=== PATIENT | female | born 1965 | race African-American/Black ===

== ENCOUNTER 2017-03-22 17:19 | Observation (INO) | payer OTHER ==
[~2017-03-22] VITALS: Ht 167.6 cm; Wt 83.6 kg
[~2017-03-22 17:19] MED LIST: PRIL40CA PO; PROP40TA27 PO
[2017-03-22 17:21] VITALS: BP 186/120; PULSE 88; RESP 14; TEMP 98.6; O2SAT 97
[2017-03-22] MEDS ORDERED: SODIUM CHLOR 0.9% 1000 ML INJ 1,000 ML IV ONE (17:39)
[2017-03-22] MEDS ORDERED: SODIUM CHLORIDE 0.9% FLUSH 10 ML FLUSH IVF PRN (17:45)
[2017-03-22 17:50] VITALS: BP_SYST 163; BP_SYST 168; BP_SYST 170; BP_DIAS 102; BP_DIAS 108; BP_DIAS 93; RESP 17; RESP 18; O2SAT 100
--- NOTE | 2017-03-22 18:05 | PD ---
HPI Chief Complaint: Syncope/Near-Syncope Time Seen by Provider: 17:39 Travel History International Travel<30 days: No Contact w/Intl Traveler<30days: No Traveled to known affect area: No History of Present Illness HPI Patient is a 51-year-old female with history of hypertension, lupus, tobacco abuse, presents to emergency room with complaints of a headache after syncopal episode 2 days ago. Patient reports that she has been having intermittent drop attacks, reports that 2 days she was outside of her house and had chest pain or shortness of breath and passed out in front of her house. Reports that when she fell, she landed on concrete, reports that she thinks that she was "out" for about a minute. Patient reports that her primary care doctor, Dr. Browne was working up her drop attacks as the last time it happened was 1.5 months ago. Patient reports that she has since lost her insurance and could not follow-up for further workup of her symptoms. Reports that Dr. Browne wanted to do a cardiac workup for her. Patient this time reports headache, denies chest pain or shortness of breath. Reports that she is currently not on any anticoagulants. PFSH Past Medical History Asthma: Yes Blood Disorders: No Anxiety: No Depression: Yes Heart Rhythm Problems: Yes (tachycardia) Cancer: Yes (THROAT) Cardiac Catheterization: No Cardiovascular Problems: Yes High Cholesterol: No Congestive Heart Failure: No Diabetes: No Diminished Hearing: No Endocrine: No GERD: Yes Genitourinary: No Headaches: Yes Hypertension: Yes Immune Disorder: No Medical other: Yes (LUPUS) Musculoskeletal: No Neurologic: No Psychiatric: No Respiratory: No Migraines: Yes Tetanus Vaccination: > 5 Years Influenza Vaccination: No ?: Not LMP: 02/26/17 Menopausal: No : 4 Para: 3 Miscarriage: 1 Ovarian Cysts: Yes Tubal Ligation: Yes Past Surgical History Abdominal Surgery: Yes (TUMORS REMOVED FROM STOMACH) AICD: No Cardiac Surgery: No Section: Yes Coronary Artery Bypass Graft: No Ear Surgery: No Endocrine Surgery: No Eye Surgery: No Genitourinary Surgery: No Gynecologic Surgery: Yes (ovary cyst) Joint Replacement: No Neurologic Surgery: Yes (BENIGN BRAIN TUMOR REMOVED) Oral Surgery: Yes (BIOPSY OF THROAT) Pacemaker: No Thoracic Surgery: No Other Surgery: Yes (UTERINE TUMOR REMOVED) Family History Family Myocardial Infarction: Yes (grandmother, sister, uncle) Social History Alcohol Use: Yes (bottle of wine a daily) Tobacco Use: Yes (1/2 PPD) 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 ) Allergies-Medications (Allergen,Severity, Reaction): Coded Allergies: MRI PRECAUTION (Verified Allergy, Severe, ALLERGY TO MRI CONTRAST MEDIUM, 03/26/16) Sulfa (Sulfonamide Antibiotics) (Verified Allergy, Severe, SWELLING, ) diatrizoate meglumine (Verified Allergy, Severe, SWELLS UP, 03/22/17) gadobenic acid (Verified Allergy, Severe, SWELLS UP, 03/22/17) gadodiamide (Verified Allergy, Severe, SWELLS UP, 03/22/17) gadoteridol (Verified Allergy, Severe, SWELLS UP, 03/22/17) iodixanol (Verified Allergy, Severe, SWELLS UP, 03/22/17) iohexol (Verified Allergy, Severe, SWELLS UP, 03/22/17) penicillin G (Verified Allergy, Severe, SWELLS UP, 03/22/17) Reported Meds & Prescriptions Reported Meds & Active Scripts Active No Active Prescriptions or Reported Medications Review of Systems General / Constitutional: No: Fever Eyes: No: Visual changes HENT: No: Headaches Cardiovascular: Positive: Chest Pain or Discomfort, Syncope Respiratory: Positive: Shortness of Breath Gastrointestinal: No: Abdominal Pain Genitourinary: No: Dysuria Musculoskeletal: No: Pain Skin: No Rash Neurologic: Positive: Headache, No: Weakness Psychiatric: No: Depression Endocrine: No: Polydipsia Hematologic/Lymphatic: No: Easy Bruising Physical Exam Narrative GENERAL: mild distress SKIN: Focused skin assessment warm/dry. HEAD: Atraumatic. Normocephalic. EYES: Pupils equal and round. No scleral icterus. No injection or drainage. ENT: No nasal bleeding or discharge. Mucous membranes pink and moist. NECK: Trachea midline. No JVD. CARDIOVASCULAR: Regular rate and rhythm. No murmur appreciated. RESPIRATORY: No accessory muscle use. Clear to auscultation. Breath sounds equal bilaterally. GASTROINTESTINAL: Abdomen soft, non-tender, nondistended. Hepatic and splenic margins not palpable. MUSCULOSKELETAL: No obvious deformities. No clubbing. No cyanosis. No edema. NEUROLOGICAL: Awake and alert. No obvious cranial nerve deficits. Motor grossly within normal limits. Normal speech. CN 2-12 grossly intact with no neurological deficits PSYCHIATRIC: Appropriate mood and affect; insight and judgment normal. Data Data Last Documented VS Vital Signs Date Time Temp Pulse Resp B/P (MAP) Pulse Ox O2 Delivery O2 Flow Rate FiO2 03/22/17 17:50 74 18 163/93 (116) 73 17 168/102 (124) 78 17 170/108 (128) 03/22/17 17:50 100 Room Air 03/22/17 17:21 98.6 Orders Orders Electrocardiogram (03/22/17 17:39) Ed Urine Pregnancytest Poc (03/22/17 17:39) Complete Blood Count With Diff (03/22/17:39) Comprehensive Metabolic Panel (03/22/17:39) Magnesium (Mg) (03/22/17:39) B-Type Natriuretic Peptide (03/22/17:39) Ckmb (Isoenzyme) Profile (03/22/17:39) Troponin I (03/22/17:39) Act Partial Throm Time (Ptt) (03/22/17:39) Prothrombin Time / Inr (Pt) (03/22/17 17:39) Urinalysis - C+S If Indicated (03/22/17:39) Chest, Single Ap (03/22/17:39) Ct Brain W/O Iv Contrast(Rout) (03/22/17 17:39) Blood Glucose (03/22/17 17:39) Ecg Monitoring (03/22/17 17:39) Iv Access Insert/Monitor (03/22/17:39) Oximetry (03/22/17 17:39) Sodium Chloride 0.9% Flush (Ns Flush) (03/22/17 17:45) Sodium Chlor 0.9% 1000 Ml Inj (Ns 1000 M (03/22/17 17:39) Orthostatic Vital Signs (03/22/17 17:39) Drug Screen, Random Urine (03/22/17 17:39) D-Dimer (03/22/17 18:01) Drug Screen, Random Urine (03/22/17 18:03) Dexamethasone Inj (Decadron Inj) (03/22/17 18:45) Ketorolac Inj (Toradol Inj) (03/22/17 18:45) Labs Laboratory Tests Test 03/22/17 17:50 03/22/17 18:00 White Blood Count 4.0 TH/MM3 Red Blood Count 4.84 MIL/MM3 Hemoglobin 14.0 GM/DL Hematocrit 42.2 % Mean Corpuscular Volume 87.1 FL Mean Corpuscular Hemoglobin 28.9 PG Mean Corpuscular Hemoglobin Concent 33.2 % Red Cell Distribution Width 15.2 % Platelet Count 228 TH/MM3 Mean Platelet Volume 8.0 FL Neutrophils (%) (Auto) 48.6 % Lymphocytes (%) (Auto) 44.0 % Monocytes (%) (Auto) 4.9 % Eosinophils (%) (Auto) 1.9 % Basophils (%) (Auto) 0.6 % Neutrophils # (Auto) 2.0 TH/MM3 Lymphocytes # (Auto) 1.8 TH/MM3 Monocytes # (Auto) 0.2 TH/MM3 Eosinophils # (Auto) 0.1 TH/MM3 Basophils # (Auto) 0.0 TH/MM3 CBC Comment DIFF FINAL Differential Comment Prothrombin Time 10.4 SEC Prothromb Time International Ratio 0.9 RATIO Activated Partial Thromboplast Time 30.1 SEC Blood Urea Nitrogen 8 MG/DL Creatinine 0.89 MG/DL Random Glucose 84 MG/DL Total Protein 7.8 GM/DL Albumin 3.4 GM/DL Calcium Level 8.5 MG/DL Magnesium Level 2.0 MG/DL Alkaline Phosphatase 78 U/L Aspartate Amino Transf (AST/SGOT) 17 U/L Alanine Aminotransferase (ALT/SGPT) 12 U/L Total Bilirubin 0.5 MG/DL Sodium Level 138 MEQ/L Potassium Level 4.1 MEQ/L Chloride Level 106 MEQ/L Carbon Dioxide Level 24.6 MEQ/L Anion Gap 7 MEQ/L Estimat Glomerular Filtration Rate 81 ML/MIN Total Creatine Kinase 94 U/L Troponin I LESS THAN 0.02 NG/ML Urine Color YELLOW Urine Turbidity HAZY Urine pH 6.5 Urine Specific [place] 1.015 Urine Protein NEG mg/dL Urine Glucose (UA) NEG mg/dL Urine Ketones NEG mg/dL Urine Occult Blood TRACE Urine Nitrite NEG Urine Bilirubin NEG Urine Urobilinogen LESS THAN 2.0 MG/DL Urine Leukocyte Esterase NEG Urine RBC 1 /hpf Urine WBC 1 /hpf Urine Squamous Epithelial Cells 4 /hpf Microscopic Urinalysis Comment CULT NOT INDICATED MDM Medical Decision Making Medical Screen Exam Complete: Yes Emergency Medical Condition: Yes Medical Record Reviewed: Yes Interpretation(s) Vital Signs Date Time Temp Pulse Resp B/P (MAP) Pulse Ox O2 Delivery O2 Flow Rate FiO2 03/22/17 17:21 98.6 88 14 186/120 (142) 97 Differential Diagnosis Differential includes intracranial hemorrhage, ACS, arrhythmia, electrolyte abnormality Narrative Course 51-year-old female who presents to emergency room with complaints of syncopal episode 2 days ago, she reports that she fell and hit her head on concrete. Patient reports that she has continued headache this time, patient reports that at the time her syncopal episode, she did have chest pain which was pleuritic in nature. Patient currently chest pain-free at this time. Patient was supposed to be worked up for syncopal episodes by her primary care doctor but currently lost her insurance. Patient was placed on a youth nutritional monitor upon arrival to the emergency room. Lab work including EKG ordered. CT of the head ordered. Patient with no cranial nerve deficits at this time, plan to observe patient. Vital Signs Date Time Temp Pulse Resp B/P (MAP) Pulse Ox O2 Delivery O2 Flow Rate FiO2 03/22/17 17:50 74 18 163/93 (116) 73 17 168/102 (124) 78 17 170/108 (128) 03/22/17 17:50 17 100 Room Air 03/22/17 17:50 76 18 100 Room Air 03/22/17 17:21 98.6 88 14 186/120 (142) 97 Laboratory Tests Test 03/22/17 17:50 03/22/17 18:00 White Blood Count 4.0 TH/MM3 (4.0-11.0) Red Blood Count 4.84 MIL/MM3 (4.00-5.30) Hemoglobin 14.0 GM/DL (11.6-15.3) Hematocrit 42.2 % (35.0-46.0) Mean Corpuscular Volume 87.1 FL (80.0-100.0) Mean Corpuscular Hemoglobin 28.9 PG (27.0-34.0) Mean Corpuscular Hemoglobin Concent 33.2 % (32.0-36.0) Red Cell Distribution Width 15.2 % (11.6-17.2) Platelet Count 228 TH/MM3 (150-450) Mean Platelet Volume 8.0 FL (7.0-11.0) Neutrophils (%) (Auto) 48.6 % (16.0-70.0) Lymphocytes (%) (Auto) 44.0 % (9.0-44.0) Monocytes (%) (Auto) 4.9 % (0.0-8.0) Eosinophils (%) (Auto) 1.9 % (0.0-4.0) Basophils (%) (Auto) 0.6 % (0.0-2.0) Neutrophils # (Auto) 2.0 TH/MM3 (1.8-7.7) Lymphocytes # (Auto) 1.8 TH/MM3 (1.0-4.8) Monocytes # (Auto) 0.2 TH/MM3 (0-0.9) Eosinophils # (Auto) 0.1 TH/MM3 (0-0.4) Basophils # (Auto) 0.0 TH/MM3 (0-0.2) CBC Comment DIFF FINAL Differential Comment Prothrombin Time 10.4 SEC (9.8-11.6) Prothromb Time International Ratio 0.9 RATIO Activated Partial Thromboplast Time 30.1 SEC (24.3-30.1) Blood Urea Nitrogen 8 MG/DL (7-18) Creatinine 0.89 MG/DL (0.50-1.00) Random Glucose 84 MG/DL (74-106) Total Protein 7.8 GM/DL (6.4-8.2) Albumin 3.4 GM/DL (3.4-5.0) Calcium Level 8.5 MG/DL (8.5-10.1) Magnesium Level 2.0 MG/DL (1.5-2.5) Alkaline Phosphatase 78 U/L (45-117) Aspartate Amino Transf (AST/SGOT) 17 U/L (15-37) Alanine Aminotransferase (ALT/SGPT) 12 U/L (10-53) Total Bilirubin 0.5 MG/DL (0.2-1.0) Sodium Level 138 MEQ/L (136-145) Potassium Level 4.1 MEQ/L (3.5-5.1) Chloride Level 106 MEQ/L (98-107) Carbon Dioxide Level 24.6 MEQ/L (21.0-32.0) Anion Gap 7 MEQ/L (5-15) Estimat Glomerular Filtration Rate 81 ML/MIN (>89) Total Creatine Kinase 94 U/L (26-192) Troponin I LESS THAN 0.02 NG/ML Urine Color YELLOW (YELLW/STRAW) Urine Turbidity HAZY (CLEAR) Urine pH 6.5 (5.0-8.5) Urine Specific [place] 1.015 (1.002-1.035) Urine Protein NEG mg/dL (NEG-TRACE) Urine Glucose (UA) NEG mg/dL (NEG) Urine Ketones NEG mg/dL (NEG) Urine Occult Blood TRACE (NEG) Urine Nitrite NEG (NEG) Urine Bilirubin NEG (NEG) Urine Urobilinogen LESS THAN 2.0 MG/DL (LESS Urine Leukocyte Esterase NEG (NEG) Urine RBC 1 /hpf (0-3) Urine WBC 1 /hpf (0-5) Urine Squamous Epithelial Cells 4 /hpf (0-5) Microscopic Urinalysis Comment CULT NOT INDICATED Ct of head: menigioma with no acute intracranial process Plan to obs patient for syncope and cardiac observation Diagnosis Primary Impression: Syncope and collapse Admitting Information Admitting Physician Requests: Observation Scripts No Active Prescriptions or Reported Meds Camelia Reyez DO Mar 22, 2017 18:05
[2017-03-22 18:11] LABS: BASOPHIL % 0.6 % (0.0-2.0); EOSINOPHIL # 0.1 TH/MM3 (0-0.4); EOSINOPHIL % 1.9 % (0.0-4.0); HEMATOCRIT 42.2 % (35.0-46.0); HEMO FLAGS DIFF FINAL; LYMPHOCYTE # 1.8 TH/MM3 (1.0-4.8); MEAN CELL VOLUME 87.1 FL (80.0-100.0); MEAN CORPUSCULAR HEMOGLOBIN 28.9 PG (27.0-34.0); MEAN CORPUSCULAR HGB CONC 33.2 % (32.0-36.0); MONO % 4.9 % (0.0-8.0); NEUT % 48.6 % (16.0-70.0); PLATELET COUNT 228 TH/MM3 (150-450); RED BLOOD COUNT 4.84 MIL/MM3 (4.00-5.30); RED CELL DISTRIBUTION WIDTH 15.2 % (11.6-17.2)
[2017-03-22 18:30] LABS: APTT (PATIENT) 30.1 SEC (24.3-30.1); INTERNATIONAL NORMALIZED RATIO 0.9 RATIO; PROTHROMBIN TIME - PATIENT 10.4 SEC (9.8-11.6)
--- NOTE | 2017-03-22 18:30 | RADRPT ---
EXAM DATE/TIME: 03/22/2017 18:16 [facility] COMPARISON: CT BRAIN W/O CONTRAST, November 03, 2015, 3:42. INDICATIONS : Syncopal episode. RADIATION DOSE: 38.35 CTDIvol (mGy) MEDICAL HISTORY : Cardiovascular disease. Hypertension. Carcinoma, esophageal. SURGICAL HISTORY : Tubal ligation. ENCOUNTER: Initial ACUITY: 1 day PAIN SCALE: 0/10 LOCATION: cranial TECHNIQUE: Multiple contiguous axial images were obtained of the head. Using automated exposure control and adj ustment of the mA and/or kV according to patient size, radiation dose was kept as low as reasonably a chievable to obtain optimal diagnostic quality images. DICOM format image data is available electro nically for review and comparison. FINDINGS: There is no evidence of acute cortical infarction, acute hemorrhage, mass effect or midline shift. Th e calcified 2.6 a 1.3 cm extra-axial mass adjacent to the transverse sinus is again identified charac teristic of meningioma. There has been no significant change when compared to the prior exam. Posteri or fossa structures are unremarkable. There is previous left temporal craniotomy CONCLUSION: No evidence of acute intracranial pathology. Stable meningioma Leo Couch MD on March 22, 2017 at 18:27 Board Certified Radiologist. This report was verified electronically.
[2017-03-22 18:31] LABS: BLOOD, URINE TRACE (NEG); COMMENT (UR) CULT NOT INDICATED; CULTURE IF INDICATED CULT NOT INDICATED; GLUCOSE,URINE NEG (NEG); KETONE, URINE NEG (NEG); NITRITE,URINE NEG (NEG); PH, URINE 6.5 (5.0-8.5); SQUAMOUS EPITHELIAL CELL URINE 4 /hpf (0-5); URINE COLOR YELLOW (YELLW/STRAW)
--- NOTE | 2017-03-22 18:35 | RADRPT ---
EXAM DATE/TIME: 03/22/2017 18:04 [facility] COMPARISON: CHEST SINGLE AP, August 17, 2015, 20:44. INDICATIONS : Palpitations. MEDICAL HISTORY : Hypertension. Lupus. SURGICAL HISTORY : None. ENCOUNTER: Initial ACUITY: 1 day PAIN SCORE: 0/10 LOCATION: Bilateral chest FINDINGS: A single view of the chest demonstrates the lungs to be symmetrically aerated without evidence of mas s, infiltrate or effusion. The cardiomediastinal contours are unremarkable. Osseous structures are intact. CONCLUSION: 1. No acute cardiopulmonary disease. Leo Couch MD on March 22, 2017 at 18:33 Board Certified Radiologist. This report was verified electronically.
[2017-03-22 18:42] LABS: ALKALINE PHOSPHATASE 78 U/L (45-117); ALT (GPT) 12 U/L (10-53); ANION GAP 7 MEQ/L (5-15); AST (GOT) 17 U/L (15-37); BICARBONATE 24.6 MEQ/L (21.0-32.0); BLOOD UREA NITROGEN 8 MG/DL (7-18); CHLORIDE 106 MEQ/L (98-107); GLOMERULAR FILTRATION RATE 81 ML/MIN (>89); POTASSIUM 4.1 MEQ/L (3.5-5.1); SODIUM (NA) 138 MEQ/L (136-145); TOTAL BILIRUBIN ADULT 0.5 MG/DL (0.2-1.0)
[2017-03-22 18:45] VITALS: BP 190/73; PULSE 68; RESP 18; O2SAT 98
[2017-03-22] MEDS ORDERED: DEXAMETHASONE SOD PHOS 20 MG/5 ML VIAL IV PUSH ONE (18:45)
[2017-03-22] MEDS ORDERED: KETOROLAC TROMETHAMINE 30 MG/ML (IVP) VIAL IV PUSH ONE (18:45)
[2017-03-22 18:47] LABS: CREATINE KINASE 94 U/L (26-192)
[2017-03-22] MEDS ORDERED: ASPIRIN 81 MG CHEW TAB CHEW ONE (19:00)
[2017-03-22] MEDS ORDERED: NALOXONE HCL 0.4 MG/ML AMP IV PUSH PRN (19:15)
[2017-03-22] MEDS ORDERED: SODIUM CHLORIDE 0.9% FLUSH 10 ML FLUSH IV FLUSH PRN (19:15)
--- NOTE | 2017-03-22 20:29 | RADRPT ---
EXAM DATE/TIME: 03/22/2017 19:50 [facility] COMPARISON: No previous studies available for comparison. INDICATIONS : Syncope. MEDICAL HISTORY : Hypertension. Gastroesophageal reflux disease. Asthma. ETOH abuse. Substance abuse. Ovarian cyst. L upus. SURGICAL HISTORY : Benign brain tumor removed. Uterine tumor removed. ENCOUNTER: Initial ACUITY: 3 days PAIN SCORE: 0/10 LOCATION: Bilateral neck PEAK SYSTOLIC VELOCITIES (cm/sec): ICA/CCA RATIO: Right: 2.4 Left: 2.2 ICA: Right: 107 Left: 109 CCA: Right: 44 Left: 50 ECA: Right: 44 Left: 94 VERTEBRAL: Right: 56 antegrade Left: 59 antegrade Elevated flow velocities and ICA/CCA ratios have been found to correlate with increased degrees of vessel stenosis, calculated as percentage of diameter relative to a normal segment of distal ICA/CCA FINDINGS: RIGHT CAROTID: No significant stenosis is visualized. The waveforms are within normal limits. LEFT CAROTID: No significant stenosis is visualized. The waveforms are within normal limits. VERTEBRAL ARTERIES: Antegrade flow is seen in both vertebral arteries. MISCELLANEOUS: None. CONCLUSION: 1. Elevated velocities bilaterally corresponding to 50-70 % stenosis without significant plaque forma tion. CT angiography of the cervicobrachial arch and carotid arteries is recommended for further eval uation if clinically indicated. Leo Couch MD on March 22, 2017 at 20:27 Board Certified Radiologist. This report was verified electronically.
[2017-03-22] MEDS ORDERED: cloNIDine HCL 0.1 MG TAB PO ONE (21:15)
[2017-03-22 21:16] VITALS: BP 165/110; PULSE 73; RESP 16; TEMP 98.1; O2SAT 100
[2017-03-22] MEDS ORDERED: TOPI1TAB36 PO (21:18)
[2017-03-22] MEDS ORDERED: PROP40TA3 PO (21:18)
[2017-03-22] MEDS ORDERED: LISI-515 PO (21:23)
[2017-03-22] MEDS ORDERED: HYDR25TA5 PO (21:27)
--- NOTE | 2017-03-22 21:46 | HHI.HP ---
[facility] Service [facility] ([place], [place])ists Primary Care Physician No Primary Care Physician Admission Diagnosis Syncope Diagnoses: Chief Complaint: Headache, syncope Travel History International Travel<30 Days: No Contact w/Intl Traveler <30 Da: No Traveled to Known Affected Are: No History of Present Illness 51-year-old female with a history of hypertension, lupus, tobacco abuse, throat cancer, benign brain tumor, asthma, depression and GERD presented to the ED with complaints of a headache and having a syncopal episode 2 days ago. Patient states 2 days ago she was walking outside and passed out and hit the right side of her head on the sidewalk she states she will only lost consciousness for a brief moment. She denies any associated chest pain or shortness of breath but does complain of the headache that started after the fall. She states she randomly passed out a month and a half ago and was seen by her primary care physician Dr. Cardenas and was going to have a workup completed but lost her insurance and she is been unable to follow up with him. His loss of insurance she has been unable to take any medications for her high blood pressure and lupus. The patient says that she has felt dizzy prior to her syncopal episodes and sometimes sees spots. She also feels like her hands are shaking when she passes out. She says her episodes tend to occur in the evening time. She mentions she gets flare-ups of Lupus from time to time, but she feels well at this time. She does complain of a headache from hitting her head a couple of days ago. Review of Systems Except as stated in HPI: all other systems reviewed are Neg Past Family Social History Past Medical History Hypertension Lupus Tobacco, alcohol and illicit drug abuse Throat cancer Benign brain tumor in Asthma Depression GERD Past Surgical History Tubal ligation Throat cancer removed with radiation Ovarian cyst removal Reported Medications Reported Meds & Active Scripts Active No Active Prescriptions or Reported Medications Allergies: Coded Allergies: MRI PRECAUTION (Verified Allergy, Severe, ALLERGY TO MRI CONTRAST MEDIUM, 03/26/16) Sulfa (Sulfonamide Antibiotics) (Verified Allergy, Severe, SWELLING, ) diatrizoate meglumine (Verified Allergy, Severe, SWELLS UP, 03/22/17) gadobenic acid (Verified Allergy, Severe, SWELLS UP, 03/22/17) gadodiamide (Verified Allergy, Severe, SWELLS UP, 03/22/17) gadoteridol (Verified Allergy, Severe, SWELLS UP, 03/22/17) iodixanol (Verified Allergy, Severe, SWELLS UP, 03/22/17) iohexol (Verified Allergy, Severe, SWELLS UP, 03/22/17) penicillin G (Verified Allergy, Severe, SWELLS UP, 03/22/17) Active Ordered Medications Current Medications Medications (Trade) Dose Ordered Sig/Betty Route Start Time Stop Time Status Last Admin (NS Flush) 2 ml UNSCH PRN IV FLUSH 03/22/17 19:15 (NS Flush) 2 ml BID IV FLUSH 03/22/17 21:00 (Narcan Inj) 0.4 mg UNSCH PRN IV PUSH 03/22/17 19:15 (Catapres) 0.1 mg ONCE ONCE PO 03/22/17 21:15 03/22/17 21:16 UNV Family History Dad: Heart disease, CVA Social History Tobacco use: 10 cigarettes a day Alcohol use: A bottle wine a day Illicit drug use: Marijuana and cocaine Physical Exam Vital Signs Vital Signs Date Time Temp Pulse Resp B/P (MAP) Pulse Ox O2 Delivery O2 Flow Rate FiO2 03/22/17 18:45 68 18 190/73 (112) 98 Room Air 03/22/17 17:50 74 18 163/93 (116) 73 17 168/102 (124) 78 17 170/108 (128) 03/22/17 17:50 17 100 Room Air 03/22/17 17:50 76 18 100 Room Air 03/22/17 17:21 98.6 88 14 186/120 (142) 97 Physical Exam GENERAL: This is a well-nourished, well-developed patient, in no apparent distress. SKIN: No rashes, ecchymoses or lesions. Cool and dry. HEAD: Atraumatic. Normocephalic. EYES: Pupils equal round and reactive. ENT: Nose without bleeding, purulent drainage or septal hematoma. Airway patent. NECK: Trachea midline. No JVD or lymphadenopathy CARDIOVASCULAR: Regular rate and rhythm without murmurs, gallops, or rubs. RESPIRATORY: Clear to auscultation. Breath sounds equal bilaterally. No wheezes , rales, or rhonchi. GASTROINTESTINAL: Abdomen soft, non-tender, nondistended. MUSCULOSKELETAL: Extremities without clubbing, cyanosis, or edema. Negative Homans sign bilaterally. NEUROLOGICAL: Awake and alert. Complains of headache. No cranial deficits. Motor and sensory grossly within normal limits. Normal speech. Laboratory Laboratory Tests Test 03/22/17 17:50 03/22/17 18:00 White Blood Count 4.0 Red Blood Count 4.84 Hemoglobin 14.0 Hematocrit 42.2 Mean Corpuscular Volume 87.1 Mean Corpuscular Hemoglobin 28.9 Mean Corpuscular Hemoglobin Concent 33.2 Red Cell Distribution Width 15.2 Platelet Count 228 Mean Platelet Volume 8.0 Neutrophils (%) (Auto) 48.6 Lymphocytes (%) (Auto) 44.0 Monocytes (%) (Auto) 4.9 Eosinophils (%) (Auto) 1.9 Basophils (%) (Auto) 0.6 Neutrophils # (Auto) 2.0 Lymphocytes # (Auto) 1.8 Monocytes # (Auto) 0.2 Eosinophils # (Auto) 0.1 Basophils # (Auto) 0.0 CBC Comment DIFF FINAL Differential Comment Prothrombin Time 10.4 Prothromb Time International Ratio 0.9 Activated Partial Thromboplast Time 30.1 Blood Urea Nitrogen 8 Creatinine 0.89 Random Glucose 84 Total Protein 7.8 Albumin 3.4 Calcium Level 8.5 Magnesium Level 2.0 Alkaline Phosphatase 78 Aspartate Amino Transf (AST/SGOT) 17 Alanine Aminotransferase (ALT/SGPT) 12 Total Bilirubin 0.5 Sodium Level 138 Potassium Level 4.1 Chloride Level 106 Carbon Dioxide Level 24.6 Anion Gap 7 Estimat Glomerular Filtration Rate 81 Total Creatine Kinase 94 Troponin I LESS THAN 0.02 B-Type Natriuretic Peptide 22 Urine Color YELLOW Urine Turbidity HAZY Urine pH 6.5 Urine Specific [place] 1.015 Urine Protein NEG Urine Glucose (UA) NEG Urine Ketones NEG Urine Occult Blood TRACE Urine Nitrite NEG Urine Bilirubin NEG Urine Urobilinogen LESS THAN 2.0 Urine Leukocyte Esterase NEG Urine RBC 1 Urine WBC 1 Urine Squamous Epithelial Cells 4 Microscopic Urinalysis Comment CULT NOT INDICATED Urine Opiates Screen NEG Urine Barbiturates Screen NEG Urine Amphetamines Screen NEG Urine Benzodiazepines Screen NEG Urine Cocaine Screen POS Urine Cannabinoids Screen POS Result Diagram: 03/22/17174903/22/171749 Caprini VTE Risk Assessment Caprini VTE Risk Assessment: Mod/High Risk (score >= 2) Caprini Risk Assessment Model Point Value = 1 Point Value = 2 Point Value = 3 Point Value = 5 Age 41-60 Minor surgery BMI > 25 kg/m2 Swollen legs Varicose veins or History of unexplained or recurrent spontaneous Oral contraceptives or hormone replacement Sepsis (< 1 month) Serious lung disease, including pneumonia (< 1 month) Abnormal pulmonary function Acute myocardial infarction Congestive heart failure (< 1 month) History of inflammatory bowel disease Medical patient at bed rest Age 61-74 Arthroscopic surgery Major open surgery (> 45 min) Laparoscopic surgery (> 45 min) Malignancy Confined to bed (> 72 hours) Immobilizing plaster cast Central venous access Age >= 75 History of VTE Family history of VTE Factor V Leiden Prothrombin [id number] Lupus anticoagulant Anticardiolipin antibodies Elevated serum homocysteine Heparin-induced thrombocytopenia Other congenital or acquired thrombophilia Stroke (< 1 month) Elective arthroplasty Hip, pelvis, or leg fracture Acute spinal cord injury (< 1 month) Prophylaxis Regimen Total Risk Factor Score Risk Level Prophylaxis Regimen 0-1 Low Early ambulation 2 Moderate Order ONE of the following: *Sequential Compression Device (SCD) *Heparin 5000 units SQ BID 3-4 Higher Order ONE of the following medications: *Heparin 5000 units SQ TID *Enoxaparin/Lovenox 40 mg SQ daily (WT < 150 kg, CrCl > 30 mL/min) *Enoxaparin/Lovenox 30 mg SQ daily (WT < 150 kg, CrCl > 10-29 mL/min) *Enoxaparin/Lovenox 30 mg SQ BID (WT < 150 kg, CrCl > 30 mL/min) AND/OR *Sequential Compression Device (SCD) 5 or more Highest Order ONE of the following medications: *Heparin 5000 units SQ TID (Preferred with Epidurals) *Enoxaparin/Lovenox 40 mg SQ daily (WT < 150 kg, CrCl > 30 mL/min) *Enoxaparin/Lovenox 30 mg SQ daily (WT < 150 kg, CrCl > 10-29 mL/min) *Enoxaparin/Lovenox 30 mg SQ BID (WT < 150 kg, CrCl > 30 mL/min) AND *Sequential Compression Device (SCD) Assessment and Plan Problem List: (1) Syncope and collapse ICD Code: R55 - Syncope and collapse Status: Acute (2) Tobacco abuse ICD Code: Z72.0 - Tobacco use (3) ETOH abuse ICD Code: F10.10 - Alcohol abuse, uncomplicated (4) HTN (hypertension) ICD Code: I10 - Essential (primary) hypertension Assessment and Plan 51-year-old female with a history of hypertension, lupus, tobacco abuse, throat cancer, benign brain tumor, asthma, depression and GERD presented to the ED with complaints of a headache and having a syncopal episode 2 days ago Syncope Head CT reviewed and unremarkable Carotid ultrasound reviewed and shows elevated velocities bilaterally corresponding to 50-70% stenosis without significant plaque formation EKG reviewed and showed sinus rhythm -2-D echo ordered -Consult neurology for recommendations -Serial troponin and EKGs ordered -Neuro checks -Orthostatic blood pressures -MRI brain w/o contrast ordered, patient is allergic to contrast -Lipid profile ordered Stable meningioma noted on CT. She does describe tremors in her hands when she passes out. Concern for seizure. Will order EEG. Follow MRI. Neurology consult requested. Hypertension, chronic, uncontrolled -Resumed home medications lisinopril and HCTZ -Hold propranolol due to positive cocaine use -Monitor vitals -Clonidine when necessary Blood pressure currently well-controlled. Orthostatics negative. Continue current regimen. Cough, non productive, no fevers or leukocytosis, patient states normal cough likely due to smoking D dimer 2.65 -VQ scan ordered to rule out P/e -Duonebs ordered In light of elevated d-dimer will pursue VQ scan. Tobacco, alcohol and illicit drug use Drug screen positive for cocaine and marijuana -Encouraged to quit -CIWA protocol ordered -Seizure and withdrawal precautions Cessation instructions. CIWA. DVT prophylaxis: SCDs Discussed Condition With Patient The exam, history, and the medical decision-making described in the above note were completed with the assistance of the mid-level provider. I reviewed and agree with the findings presented. I attest that I had a [id number] encounter with the patient on the same day, and personally performed and documented my assessment and findings in the medical record. Rachele Segura Mar 22, 2017 21:46 Miguel Fenton DO Mar 23, 2017 09:08
[2017-03-22 22:01] VITALS: PULSE 69
[2017-03-22 23:35] VITALS: BP 167/94; PULSE 93; RESP 18; TEMP 98; O2SAT 99
[2017-03-22] MEDS: SODIUM CHLORIDE 0.9% FLUSH 10 ML FLUSH IV FLUSH SCH (23:51)
[2017-03-22] MEDS: HYDROCHLOROTHIAZIDE 25 MG TAB PO SCH (23:52)
[2017-03-22] MEDS: LISINOPRIL 20 MG TAB PO SCH (23:52)
[2017-03-22] MEDS: TOPIRAMATE 25 MG TAB PO SCH (23:53)
[2017-03-23] VITALS (16 sets, daily range): BP systolic 112–179; BP diastolic 76–105; PULSE 64–93; RESP 16–18; TEMP 97.8–98.6; O2SAT 96–100
[2017-03-23 02:14] LABS: CREATINE KINASE 74 U/L (26-192)
[2017-03-23] MEDS ORDERED: KETOROLAC TROMETHAMINE 30 MG/ML (IVP) VIAL IV PUSH ONE (04:30)
[2017-03-23] MEDS: RESP: ALBUTEROL 2.5 MG/IPRATROPIUM 0.5 MG NEB (SCH) NEB ×4 (04:47→20:57)
--- NOTE | 2017-03-23 09:49 | EKG ---
Date Performed: 03/22/2017 Time Performed: 18:26:48 PTAGE: 51 years EKG: Sinus rhythm NONSPECIFIC T-WAVE ABNORMALITY BORDERLINE ECG PREVIOUS TRACING : 03/27/2016 04.01 Compared to the prior study, minor nonspecific T-wave rondon es are now present. DOCTOR: Leo Terry Interpretating Date/Time 03/23/2017 09:48:08
--- NOTE | 2017-03-23 09:50 | HHI.PR ---
Subjective Remarks Resting comfortably. Drinks a bottle of wine a day. Still uses cocaine. Working on quitting. Objective Vitals Vital Signs Date Time Temp Pulse Resp B/P (MAP) Pulse Ox O2 Delivery O2 Flow Rate FiO2 03/23/17 06:59 97.8 64 16 134/90 (105) 99 142/99 (113) 143/94 (110) 03/23/17 04:36 98 03/23/17 04:14 70 03/23/17 04:04 69 03/23/17 03:48 98.4 82 18 143/88 (106) 98 03/23/17 00:03 76 03/22/17 23:35 98.0 93 18 167/94 (118) 99 03/22/17 22:01 69 03/22/17 21:16 98.1 73 16 165/110 (128) 100 03/22/17 18:45 68 18 190/73 (112) 98 Room Air 03/22/17 17:50 74 18 163/93 (116) 73 17 168/102 (124) 78 17 170/108 (128) 03/22/17 17:50 17 100 Room Air 03/22/17 17:50 76 18 100 Room Air 03/22/17 17:21 98.6 88 14 186/120 (142) 97 I/O 03/22/17 03/22/17 03/22/17 03/23/17 03/23/17 03/23/17 07:00 15:00 23:00 07:00 15:00 23:00 Intake Total 1000 ml 700 ml Balance 1000 ml 700 ml Intake Oral 700 ml IV Total 1000 ml # Voids 5 2 Result Diagram: 03/22/17174903/22/171749 Imaging Last Impressions Head CT 03/22/171738 Signed Impressions: Service Date/Time: Wednesday, March 22, 2017 18:16 - CONCLUSION: No evidence of acute intracranial pathology. Stable meningioma Leo Couch MD Chest X-Ray 03/22/171738 Signed Impressions: Service Date/Time: Wednesday, March 22, 2017 18:04 - CONCLUSION: 1. No acute cardiopulmonary disease. Leo Couch MD Carotid Artery Ultrasound 03/22/17 0000 Signed Impressions: Service Date/Time: Wednesday, March 22, 2017 19:50 - CONCLUSION: 1. Elevated velocities bilaterally corresponding to 50-70 %% stenosis without significant plaque formation. CT angiography of the cervicobrachial arch and carotid arteries is recommended for further evaluation if clinically indicated. Leo Couch MD Objective Remarks GENERAL: This is a well-nourished, well-developed patient, in no apparent distress. SKIN: No rashes, ecchymoses or lesions. Cool and dry. HEAD: Atraumatic. Normocephalic. EYES: Pupils equal round and reactive. ENT: Nose without bleeding, purulent drainage or septal hematoma. Airway patent. NECK: Trachea midline. No JVD or lymphadenopathy CARDIOVASCULAR: Regular rate and rhythm without murmurs, gallops, or rubs. RESPIRATORY: Clear to auscultation. Breath sounds equal bilaterally. No wheezes , rales, or rhonchi. GASTROINTESTINAL: Abdomen soft, non-tender, nondistended. MUSCULOSKELETAL: Extremities without clubbing, cyanosis, or edema. Negative Homans sign bilaterally. NEUROLOGICAL: Awake and alert. Complains of headache. No cranial deficits. Motor and sensory grossly within normal limits. Normal speech. Medications and IVs Current Medications Medications (Trade) Dose Ordered Sig/Betty Route Start Time Stop Time Status Last Admin (NS Flush) 2 ml UNSCH PRN IV FLUSH 03/22/17 19:15 (NS Flush) 2 ml BID IV FLUSH 03/22/17 21:00 03/22/17 23:51 (Narcan Inj) 0.4 mg UNSCH PRN IV PUSH 03/22/17 19:15 (Folate) 1 mg DAILY PO 03/23/17 09:00 03/28/17 08:59 (Vitamin B1) 100 mg DAILY PO 03/23/17 09:00 (Theragran M Tab) 1 tab DAILY PO 03/23/17 09:00 03/28/17 08:59 (Hydrodiuril) 25 mg BID PO 03/22/17 21:45 03/22/17 23:52 (Prinivil) 20 mg BID PO 03/22/17 21:45 03/22/17 23:52 (Topamax) 50 mg BID PO 03/22/17 21:45 03/22/17 23:53 (Duoneb Neb) 1 ampule Q6HR NEB NEB 03/23/17 04:30 03/23/17 04:47 A/P Problem List: (1) Syncope and collapse ICD Code: R55 - Syncope and collapse Status: Acute (2) Tobacco abuse ICD Code: Z72.0 - Tobacco use (3) ETOH abuse ICD Code: F10.10 - Alcohol abuse, uncomplicated (4) HTN (hypertension) ICD Code: I10 - Essential (primary) hypertension Assessment and Plan 51-year-old female with a history of hypertension, lupus, tobacco abuse, throat cancer, benign brain tumor, asthma, depression and GERD presented to the ED with complaints of a headache and having a syncopal episode 2 days ago Syncope Head CT reviewed and unremarkable Carotid ultrasound reviewed and shows elevated velocities bilaterally corresponding to 50-70% stenosis without significant plaque formation EKG reviewed and showed sinus rhythm -2-D echo ordered -Consult neurology for recommendations -Serial troponin and EKGs ordered -Neuro checks -Orthostatic blood pressures -MRI brain w/o contrast ordered, patient is allergic to contrast -Lipid profile ordered Stable meningioma noted on CT. She does describe tremors in her hands when she passes out. Concern for seizure. Will order EEG. Follow MRI. Neurology consult requested. Hypertension, chronic, uncontrolled -Resumed home medications lisinopril and HCTZ -Hold propranolol due to positive cocaine use -Monitor vitals -Clonidine when necessary Blood pressure currently well-controlled. Orthostatics negative. Continue current regimen. Cough, non productive, no fevers or leukocytosis, patient states normal cough likely due to smoking D dimer 2.65 -VQ scan ordered to rule out P/e -Duonebs ordered In light of elevated d-dimer will pursue VQ scan. Tobacco, alcohol and illicit drug use Drug screen positive for cocaine and marijuana -Encouraged to quit -CIWA protocol ordered -Seizure and withdrawal precautions Cessation instructions. CIWA. DVT prophylaxis: SCDs Discharge Planning Awaiting further work-up. Anticipate d/c home in Miguel Jaimes DO Mar 23, 2017 09:50
[2017-03-23 09:51] LABS: AUTOMATED NEUTROPHIL # 6.7 TH/MM3 (1.8-7.7); BASOPHIL % 0.1 % (0.0-2.0); HEMATOCRIT 40.4 % (35.0-46.0); HEMO FLAGS DIFF FINAL; LYMPH % 9.5 % (9.0-44.0); LYMPHOCYTE # 0.7 TH/MM3 (1.0-4.8); MEAN CORPUSCULAR HEMOGLOBIN 28.8 PG (27.0-34.0); MEAN CORPUSCULAR HGB CONC 33.1 % (32.0-36.0); MONO % 2.8 % (0.0-8.0); NEUT % 87.6 % (16.0-70.0); PLATELET COUNT 214 TH/MM3 (150-450); RED BLOOD COUNT 4.64 MIL/MM3 (4.00-5.30); RED CELL DISTRIBUTION WIDTH 14.8 % (11.6-17.2); WHITE BLOOD COUNT 7.7 TH/MM3 (4.0-11.0)
--- NOTE | 2017-03-23 10:11 | EKG ---
Date Performed: 03/23/2017 Time Performed: 03:46:34 PTAGE: 51 years EKG: Sinus rhythm NONSPECIFIC T-WAVE ABNORMALITY BORDERLINE ECG PREVIOUS TRACING : 03/22/2017 18.26 Compared to prior tracing no significant change DOCTOR: Leo Terry Interpretating Date/Time 03/23/2017 10:08:33
[2017-03-23 10:17] LABS: ANION GAP 10 MEQ/L (5-15); BICARBONATE 22.1 MEQ/L (21.0-32.0); BLOOD UREA NITROGEN 7 MG/DL (7-18); CHLORIDE 104 MEQ/L (98-107); GLOMERULAR FILTRATION RATE 83 ML/MIN (>89); POTASSIUM 3.6 MEQ/L (3.5-5.1); SODIUM (NA) 136 MEQ/L (136-145)
[2017-03-23 10:23] LABS: HDL CHOLESTEROL 62.2 MG/DL (40.0-60.0); LDL CHOLESTEROL 75 MG/DL (0-99)
[2017-03-23 10:28] LABS: CREATINE KINASE 67 U/L (26-192)
[2017-03-23] MEDS ORDERED: APIXABAN 5 MG TABLET PO ONE (10:30)
--- NOTE | 2017-03-23 11:45 | RADRPT ---
EXAM DATE/TIME: 03/23/2017 10:51 [facility] COMPARISON: No previous studies available for comparison. INDICATIONS : Mass. MEDICAL HISTORY : Hypertension. Throat cancer SURGICAL HISTORY : thyroid and throat cancer removed, brain mass removed ENCOUNTER: Subsequent ACUITY: 3 day PAIN SCORE: 0/10 LOCATION: cranial TECHNIQUE: Multiplanar, multisequence MRI of the brain was performed without contrast. FINDINGS: MRI of the brain is performed in sagittal, axial and coronal planes. The craniocervical junction and midline structures are unremarkable. Diffusion weighted images demonstrate no abnormality. There is n o evidence of acute cortical infarction, acute hemorrhage, mass effect or midline shift is seen. Post erior fossa structures are unremarkable. There is previous left parietal craniotomy. There is a 2.4 x 1.4 extra-axial mass with signal characteristics of meningioma in the region of the left transverse sinus but contrast was not administered. The status of the transverse sinus cannot be determined. CONCLUSION: 1. 2.4 x 1.4 symmetr extra-axial mass in the region of the left transverse sinus characteristic of me ningioma. 2. Contrast was not administered which limits evaluation Leo Couch MD on March 23, 2017 at 11:40 Board Certified Radiologist. This report was verified electronically.
[2017-03-23] MEDS: LISINOPRIL 20 MG TAB PO SCH ×2 (12:10→22:34)
[2017-03-23] MEDS: MULTIVITAMINS/MINERALS THERAPEUTIC TAB PO SCH (12:10)
[2017-03-23] MEDS: HYDROCHLOROTHIAZIDE 25 MG TAB PO SCH ×2 (12:10→22:35)
[2017-03-23] MEDS: THIAMINE HCL 100 MG TAB PO SCH (12:10)
[2017-03-23] MEDS: FOLIC ACID 1 MG TAB PO SCH (12:11)
[2017-03-23] MEDS: SODIUM CHLORIDE 0.9% FLUSH 10 ML FLUSH IV FLUSH SCH ×2 (12:11→22:36)
[2017-03-23] MEDS: TOPIRAMATE 25 MG TAB PO SCH ×2 (12:11→22:34)
--- NOTE | 2017-03-23 13:40 | RADRPT ---
EXAM DATE/TIME: 03/23/2017 09:32 [facility] COMPARISON: LUNG VENTILATION & PERFUSION SCAN, March 12, 2012, 23:35. INDICATIONS : Syncopal episode. Chest pain with dyspnea. DOSE: 8.6 mCi Tc99m MAA IV 1.5 mCi Tc99m DTPA aerosol MEDICAL HISTORY : Hypertension. Lupus. Gastroesophageal reflux disease. Smoker. Asthma. SURGICAL HISTORY : Tubal ligation. ENCOUNTER: Initial ACUITY: 2 days PAIN SCALE: 0/10 LOCATION: chest TECHNIQUE: Following five minutes of tidal breathing of DTPA aerosol, planar images of the lungs were performed in eight projections. The patient was then injected with MAA, and eight-view perfusion scan was perf ormed. FINDINGS: There is a homogeneous pattern of aerosol delivery to the periphery of both lungs. No focal ventilat ory defects are seen. The perfusion lung scan demonstrates a homogenous pattern of uptake in both lungs. No segmental or s ubsegmental defects are seen. CONCLUSION: 1. Low probability pulmonary embolism Leo Couch MD on March 23, 2017 at 10:41 Board Certified Radiologist. This report was verified electronically.
--- NOTE | 2017-03-23 16:11 | MB ---
cc: HILARY BENNETT M.D. DATE OF CONSULTATION 03/23/17 DATE OF 1965 AGE 51 REASON FOR CONSULTATION Syncope. HISTORY OF PRESENT ILLNESS A 51-year-old woman with history of hypertension, lupus, tobacco abuse, throat cancer, meningioma, history of surgery 11 years ago, asthma, depression, reflux, came in due to syncopes. She states she has had a syncope off and on for quite a few years, ___ more than five, maybe since she had the meningioma removed. They can occur with her feeling lightheaded and they can occur without any warning. A friend of hers once saw the event and she had her arms flexed without shaking, without making any noises. When she comes to she is not confused but always has to urinate but has not had any incontinence or tongue biting. She had this event a couple of days prior to coming to the hospital. She was outside walking her dog when she lost consciousness briefly, came back to normal awake state and was able to continue on. She usually gets headaches but she has now a diffuse headache that has been ongoing. Does not follow up with a primary care doctor because of insurance issues. PAST MEDICAL HISTORY She has a history as stated of hypertension, lupus, tobacco, alcohol and illicit drug abuse. Throat cancer treated with radiation, meningioma, asthma, depression, reflux, surgery meningioma removal 03/24 years. Throat cancer surgery with radiation. Tubal ligation. MEDICATIONS Active medications none reported. ALLERGIES ALLERGIES ARE NUMEROUS. PLEASE REFER TO THIS MAR. SOCIAL HISTORY 10 cigarettes a day. A bottle of wine a day. Marijuana and cocaine use. FAMILY HISTORY Father has heart disease and stroke. PHYSICAL EXAMINATION VITAL SIGNS: Temperature is 97.8, pulse 64, respiratory rate 16, blood pressure supine 134/90, standing 143/94, satting at 99%. NECK: Supple. No bruits. HEART: Regular. She is awake, alert, fluent. NEURO: Pupils reactive. Visual south full. Face symmetrical. Tongue midline. Motor: No drift or leg lag. Cerebellar testing normal. Toes withdraws. Sensory normal. Gait is withheld. LABORATORY DATA labs are reviewed. CBC is unremarkable. Chemistries, glucose 120. Cardiac enzymes were normal. Urine was trace blood hazy. No culture indicated. Toxicology positive for cocaine and cannabinoids. IMAGING STUDIES Brain MRI shows 2.4 x 1.4 symmetrical extra-axial mass in the region of the left transverse sinus characteristic of a meningioma. No contrast was given due to her allergy. IMPRESSION Syncope versus seizure, really unable to determine at this point. Will get an EEG and continue to monitor her on telemetry. A 2-D echo is on order as well. She will probably need an event monitor. Topiramate was started, I believe for her migraines but it is also a good antiepileptic 50 milligrams b.i.d. that needs to be increased in a couple of weeks to at least a 100 milligrams twice a day if she can tolerate it. Maintain her on alcohol withdrawal precautions with thiamine, folic acid, vitamins and benzos p.r.n. Also, watch for seizures, Ativan if there is a witnessed seizure. The EEG was just completed. The report is still pending. Further recommendations will be made if needed. MD BARBARA Singh/CANDY /2:32 PM /3:55 PM
--- NOTE | 2017-03-23 16:29 | EKG ---
Date Performed: 03/23/2017 Time Performed: 07:26:03 PTAGE: 51 years EKG: Sinus rhythm NONSPECIFIC T-WAVE ABNORMALITY BORDERLINE ECG PREVIOUS TRACING : 03/23/2017 03.46 Compared to prior tracing no significant change DOCTOR: Sarthak Ansari Interpretating Date/Time 03/23/2017 16:27:53
[2017-03-24 00:02] VITALS: PULSE 84
[2017-03-24 03:22] VITALS: BP_SYST 141; BP_SYST 151; BP_SYST 193; BP_DIAS 103; BP_DIAS 76; BP_DIAS 93; PULSE 85; RESP 17; TEMP 98.5; O2SAT 98
[2017-03-24] MEDS: RESP: ALBUTEROL 2.5 MG/IPRATROPIUM 0.5 MG NEB (SCH) NEB ×3 (03:32→15:40)
[2017-03-24 07:23] VITALS: BP_SYST 119; BP_SYST 126; BP_SYST 137; BP_DIAS 79; BP_DIAS 83; BP_DIAS 87; PULSE 86; RESP 18; TEMP 98.5; O2SAT 100
[2017-03-24 08:16] VITALS: PULSE 86
[2017-03-24 08:17] VITALS: O2SAT 95
[2017-03-24] MEDS: MULTIVITAMINS/MINERALS THERAPEUTIC TAB PO SCH (08:38)
[2017-03-24] MEDS: LISINOPRIL 20 MG TAB PO SCH (08:38)
[2017-03-24] MEDS: FOLIC ACID 1 MG TAB PO SCH (08:38)
[2017-03-24] MEDS: THIAMINE HCL 100 MG TAB PO SCH (08:38)
[2017-03-24] MEDS: TOPIRAMATE 25 MG TAB PO SCH (08:38)
[2017-03-24] MEDS: HYDROCHLOROTHIAZIDE 25 MG TAB PO SCH (08:38)
[2017-03-24] MEDS: SODIUM CHLORIDE 0.9% FLUSH 10 ML FLUSH IV FLUSH SCH (08:43)
[2017-03-24] MEDS ORDERED: PROPRANOLOL HCL 40 MG TAB PO SCH (09:00)
--- NOTE | 2017-03-24 09:09 | MG ---
cc: DEMETRICE FUENTES M.D. Lab No: Date: 03/23/17 Age: 51 Sex: F Race: REQUESTING PHYSICIAN Dr. Fenton HISTORY An EEG was obtained on this 51-year-old patient being evaluated for extra-axial mass on the left. DESCRIPTION The patient is described as awake and asleep. This EEG is showing a combination of beta and alpha rhythms dominating the background. There is some intermixed theta activity. There are periods of time in which the theta rhythms seem to be more prominent on the left than right central temporal head regions. Photic stimulation disclosed some driving response bilaterally. There are sharp waves but no distinct paroxysmal discharge. INTERPRETATION Minimally abnormal EEG because of left central temporal slower rhythms intermittently, raising the possibility of an underlying structural abnormality but no epileptiform features are present. Demetrice Fuentes MD OFC/EO /6:19 PM /9:05 AM
[2017-03-24 11:53] VITALS: BP_SYST 109; BP_SYST 110; BP_DIAS 73; BP_DIAS 79; PULSE 59; RESP 20; TEMP 98.3; O2SAT 100
[2017-03-24] MEDS ORDERED: LISI-515 PO (13:57)
[2017-03-24] MEDS ORDERED: HYDR25TA5 PO (13:57)
[2017-03-24] MEDS ORDERED: TOPI1TAB36 PO (13:57)
[2017-03-24] MEDS ORDERED: PROP40TA3 PO (13:57)
--- NOTE | 2017-03-24 13:58 | HHI.DCPOC ---
Discharge Care Plan Diagnosis: (1) Cocaine abuse (2) Meningioma (3) HTN (hypertension) (4) Syncope and collapse (5) ETOH abuse (6) Tobacco abuse Goals to Promote Your Health * To prevent worsening of your condition and complications * To maintain your health at the optimal level Directions to Meet Your Goals Take your medications as prescribed Follow your dietary instruction Follow activity as directed Keep your appointments as scheduled Take your immunizations and boosters as scheduled If your symptoms worsen call your PCP, if no PCP go to Urgent Care Center or Emergency Room Smoking is Dangerous to Your Health. Avoid second hand smoke Call the 24-hour hour crisis hotline for domestic abuse at Miguel Fenton DO Mar 24, 2017 13:58
--- NOTE | 2017-03-24 14:09 | HHI.PR ---
Subjective Remarks The patient was feeling well and looking forward to going home. She has been ambulating without difficulty. She said her left hand had some swelling from her lupus. She did not want to start any steroids at this time. Discussed with neurology. Objective Vitals Vital Signs Date Time Temp Pulse Resp B/P (MAP) Pulse Ox O2 Delivery O2 Flow Rate FiO2 03/24/17 11:53 98.3 59 20 110/73 (85) 100 111/73 (86) 109/79 (89) 03/24/17 08:17 95 03/24/17 08:16 86 03/24/17 07:23 98.5 86 18 119/83 (95) 100 126/87 (100) 137/79 (98) 03/24/17 03:22 98.5 85 17 141/76 (97) 98 151/93 (112) 193/103 (133) 03/24/17 00:02 84 03/23/17 23:28 98.5 78 17 131/83 (99) 100 130/85 (100) 126/83 (97) 03/23/17 20:59 96 03/23/17 20:48 98.6 78 18 112/76 (88) 100 140/82 (101) 140/86 (104) 03/23/17 20:00 84 03/23/17 16:05 93 03/23/17 15:55 145/89 (107) 145/91 (109) 03/23/17 15:53 98.2 72 18 152/89 (110) 100 I/O 03/23/17 03/23/17 03/23/17 03/24/17 03/24/17 03/24/17 07:00 15:00 23:00 07:00 15:00 23:00 Intake Total 700 ml Balance 700 ml Intake Oral 700 ml # Voids 5 2 2 3 Result Diagram: 03/23/1792403/23/17924 Imaging Last Impressions Lung Scan-V Nuclear Medicine 03/23/17 0000 Signed Impressions: Service Date/Time: Thursday, March 23, 2017 09:32 - CONCLUSION: 1. Low probability pulmonary embolism Leo Couch MD Brain MRI 03/23/17 0000 Signed Impressions: Service Date/Time: Thursday, March 23, 2017 10:51 - CONCLUSION: 1. 2.4 x 1.4 symmetr extra-axial mass in the region of the left transverse sinus characteristic of meningioma. 2. Contrast was not administered which limits evaluation Leo Couch MD Head CT 03/22/179 Signed Impressions: Service Date/Time: Wednesday, March 22, 2017 18:16 - CONCLUSION: No evidence of acute intracranial pathology. Stable meningioma Leo Couch MD Chest X-Ray 03/22/171738 Signed Impressions: Service Date/Time: Wednesday, March 22, 2017 18:04 - CONCLUSION: 1. No acute cardiopulmonary disease. Leo Couch MD Carotid Artery Ultrasound 03/22/17 0000 Signed Impressions: Service Date/Time: Wednesday, March 22, 2017 19:50 - CONCLUSION: 1. Elevated velocities bilaterally corresponding to 50-70 %% stenosis without significant plaque formation. CT angiography of the cervicobrachial arch and carotid arteries is recommended for further evaluation if clinically indicated. Leo Couch MD Objective Remarks GENERAL: This is a well-nourished, well-developed patient, in no apparent distress. SKIN: No rashes, ecchymoses or lesions. Cool and dry. HEAD: Atraumatic. Normocephalic. EYES: Pupils equal round and reactive. ENT: Nose without bleeding, purulent drainage or septal hematoma. Airway patent. NECK: Trachea midline. No JVD or lymphadenopathy CARDIOVASCULAR: Regular rate and rhythm without murmurs, gallops, or rubs. RESPIRATORY: Clear to auscultation. Breath sounds equal bilaterally. No wheezes , rales, or rhonchi. GASTROINTESTINAL: Abdomen soft, non-tender, nondistended. MUSCULOSKELETAL: Left hand with some swelling. Extremities without clubbing, cyanosis, or edema. NEUROLOGICAL: Awake and alert. Complains of headache. No cranial deficits. Motor and sensory grossly within normal limits. Normal speech. PSYCH: Mood and affect appropriate. Medications and IVs Current Medications Medications (Trade) Dose Ordered Sig/Betty Route Start Time Stop Time Status Last Admin (NS Flush) 2 ml UNSCH PRN IV FLUSH 03/22/17 19:15 (NS Flush) 2 ml BID IV FLUSH 03/22/17 21:00 03/24/17 08:43 (Narcan Inj) 0.4 mg UNSCH PRN IV PUSH 03/22/17 19:15 (Folate) 1 mg DAILY PO 03/23/17 09:00 03/28/17 08:59 03/24/17 08:38 (Vitamin B1) 100 mg DAILY PO 03/23/17 09:00 03/24/17 08:38 (Theragran M Tab) 1 tab DAILY PO 03/23/17 09:00 03/28/17 08:59 03/24/17 08:38 (Hydrodiuril) 25 mg BID PO 03/22/17 21:45 03/24/17 08:38 (Prinivil) 20 mg BID PO 03/22/17 21:45 03/24/17 08:38 (Topamax) 50 mg BID PO 03/22/17 21:45 03/24/17 08:38 (Duoneb Neb) 1 ampule Q6HR NEB NEB 03/23/17 04:30 03/24/17 08:16 (Inderal) 40 mg BID PO 03/24/17 09:00 03/24/17 08:38 A/P Problem List: (1) Syncope and collapse ICD Code: R55 - Syncope and collapse Status: Acute (2) Tobacco abuse ICD Code: Z72.0 - Tobacco use (3) ETOH abuse ICD Code: F10.10 - Alcohol abuse, uncomplicated (4) HTN (hypertension) ICD Code: I10 - Essential (primary) hypertension Assessment and Plan 51-year-old female with a history of hypertension, lupus, tobacco abuse, throat cancer, benign brain tumor, asthma, depression and GERD presented to the ED with complaints of a headache and having a syncopal episode 2 days ago Syncope Head CT reviewed and unremarkable Carotid ultrasound reviewed and shows elevated velocities bilaterally corresponding to 50-70% stenosis without significant plaque formation EKG reviewed and showed sinus rhythm -2-D echo ordered. She will follow up the results as an outpt. -Consulted neurology for recommendations. Continue Topamax. -Serial troponin and EKGs stable. -Neuro checks. -Orthostatic blood pressures WNL. -MRI brain w/o contrast showed a chronic meningioma. -EEG suggestive of structural abnormality, pt has a known meningioma, but no epileptiform activity. -Lipid profile noted. -Carotid US with 50-70% stenoses bilaterally. Hypertension, chronic, uncontrolled -Resumed home medications lisinopril, propranolol and HCTZ -Monitor vitals -Clonidine when necessary Cough, non productive, no fevers or leukocytosis, patient states normal cough likely due to smoking D dimer 2.65 -VQ scan ordered to rule out P/e. Low probability. -Duonebs ordered Tobacco, alcohol and illicit drug use Drug screen positive for cocaine and marijuana -Encouraged to quit -CIWA protocol ordered -Seizure and withdrawal precautions DVT prophylaxis: SCDs Discharge Planning Discussed with neurology, stable for discharge Miguel Fenton DO Mar 24, 2017 14:09
--- NOTE | 2017-03-24 17:52 | ECHRPT ---
Indication: syncope CONCLUSIONS Normal left ventricular size. Wall thickness is normal. The left ventricular systolic function is normal with an estimated ejection fraction in the range of 55-60%. Trace mitral valve regurgitation. There is trace tricuspid valve regurgitation. The estimated pulmonary arterial pressure is 35mmHg. BP: 143 / 94 HR: 64 Rhythm: MEASUREMENTS (Male / Female) Normal Values Technical Quality: 2D ECHO LV Diastolic Diameter PLAX 4.1 cm 4.2 - 5.9 / 3.9 - 5.3 cm LV Systolic Diameter PLAX 3.0 cm IVS Diastolic Thickness 0.9 cm 0.6 - 1.0 / 0.6 - 0.9 cm LVPW Diastolic Thickness 0.8 cm 0.6 - 1.0 / 0.6 - 0.9 cm LV Relative Wall Thickness 0.4 RV Internal Dim ED PLAX 2.2 cm LA Systolic Diameter LX 2.8 cm 3.0 - 4.0 / 2.7 - 3.8 cm M-MODE Aortic Root Diameter MM 3.4 cm AV Cusp Separation MM 2.1 cm DOPPLER Mitral E Point Velocity 64.7 cm/s Mitral A Point Velocity 56.3 cm/s Mitral E to A Ratio 1.1 TR Peak Velocity 276.0 cm/s TR Peak Gradient 30.5 mmHg Right Atrial Pressure 5.0 mmHg Pulmonary Artery Systolic Pressu 35.5 mmHg Right Ventricular Systolic Press 35.5 mmHg FINDINGS LEFT VENTRICLE Normal left ventricular size. Wall thickness is normal. The left ventricular systolic function is normal with an estimated ejection fraction in the range of 55-60%. RIGHT VENTRICLE Normal right ventricular size and systolic function. LEFT ATRIUM The left atrial size is normal. RIGHT ATRIUM The right atrial size is normal. ATRIAL SEPTUM Normal atrial septal thickness without atrial level shunting by limited color doppler interrogation. AORTA The aortic root and proximal ascending aorta are normal in size on limited imaging. MITRAL VALVE Trace mitral valve regurgitation. AORTIC VALVE Trileaflet aortic valve. No aortic valve stenosis or regurgitation. TRICUSPID VALVE There is trace tricuspid valve regurgitation. The estimated pulmonary arterial pressure is 35mmHg. PULMONARY VALVE No pulmonary valve regurgitation or stenosis. VESSELS The inferior vena cava is normal in size. PERICARDIUM No pericardial effusion. Marilee Wylie MD, FACC (Electronically Signed) Final Date:24 March 2017 17:51
== END 2017-03-24 17:35 | disposition home or self-care (01) ==
LOC: NEPC 17:19 → NEDA 19:12 → NEPFCDU 20:50
PROVIDERS: ADMIT Hospitalist; ATTEND Hospitalist
DX: R55 Syncope and collapse (principal); R51 Headache; I10 Essential (primary) hypertension; F10.10 Alcohol abuse, uncomplicated; J45.909 Unspecified asthma, uncomplicated; K21.9 Gastro-esophageal reflux disease without esophagitis; F32.9 Major depressive disorder, single episode, unspecified; M32.9 Systemic lupus erythematosus, unspecified; R94.01 Abnormal electroencephalogram [EEG]; G43.909 Migraine, unspecified, not intractable, without status migrainosus; F14.10 Cocaine abuse, uncomplicated; F12.90 Cannabis use, unspecified, uncomplicated; F17.210 Nicotine dependence, cigarettes, uncomplicated; Z86.011 Personal history of benign neoplasm of the brain; Z85.819 Personal history of malignant neoplasm of unspecified site of lip, oral cavity, and pharynx; Z92.3 Personal history of irradiation; W19.XXXA Unspecified fall, initial encounter; W22.09XA Striking against other stationary object, initial encounter; Y93.K1 Activity, walking an animal
CPT/HCPCS: 70450; 70551; 71010; 78582; 80048; 80053; 80061; 80307; 81001; 82550; 83735; 83880; 84484; 84703; 85025; 85379; 85610; 85730; 93005; 93306; 93880; 94640; 94664; 95819; 96361; 96374; 96375; 96376; A9540; A9567; G0378; G8987-GP; G8988-GP; J1100; J1885; J7030

== ENCOUNTER 2017-06-11 20:12 | Inpatient (IN) | payer SELFPAY ==
[~2017-06-11 20:12] MED LIST changes: +HYDR25TA5 PO; +LISI-515 PO; -PRIL40CA PO; -PROP40TA27 PO; +PROP40TA3 PO; +TOPI50TA7 PO
[2017-06-11 20:14] VITALS: BP 188/115; PULSE 74; RESP 18; TEMP 98.9; O2SAT 100
--- NOTE | 2017-06-11 20:27 | PD ---
HPI Chief Complaint: Abdominal Pain Time Seen by Provider: 20:22 Travel History International Travel<30 days: No Contact w/Intl Traveler<30days: No Traveled to known affect area: No History of Present Illness HPI The patient is a 51 year old female who presents to the [facility] emergency department with a history of diarrhea that began yesterday. She reports that she had at least 12 episodes yesterday. She reports that today she had 2 normal bowel movements. She reports that yesterday she also began to have worsening cough that triggered posttussive emesis. She reports that she has not had any vomiting today and has been able to tolerate sips of fluids. The patient became concerned today when she noticed that she had a knot in the midepigastric area of her abdomen. She reports that that area is tender along with bilateral upper quadrants of the abdomen. She reports that the pain is constant and a burning sensation. The patient reports that she has a chronic smoker's cough that is been present for the last 2 years, however over the last month her cough is more productive of yellow sputum. She denies having any known fevers or chills. She reports that she feels short of breath related to her abdominal pain as it gets worse with taking a deep breath or moving. On review of systems otherwise, the patient denies having any neck pain, chest pain , urinary symptoms, or neurologic symptoms. She denies having any prior history of coronary artery disease. LMP: ended Wednesday. PCP: Dr. Pavan BROOKS Past Medical History Narrative Medical The patient's past medical history is significant for tobacco abuse, chronic bronchitis, history of an umbilical hernia noted on prior CT scans of the abdomen and pelvis, history of systemic lupus erythematosus, history of throat cancer diagnosed 25 years ago status post surgical resection and radiation therapy, depression, meningioma of the brain. Asthma: Yes Blood Disorders: No Anxiety: No Depression: Yes Heart Rhythm Problems: Yes (tachycardia) Cancer: Yes (THROAT) Cardiac Catheterization: No Cardiovascular Problems: Yes High Cholesterol: No Chemotherapy: No Chest Pain: Yes Congestive Heart Failure: No Diabetes: No Diminished Hearing: No Endocrine: No GERD: Yes Genitourinary: Yes Headaches: Yes Hypertension: Yes Immune Disorder: Yes (lupus) Musculoskeletal: No Neurologic: No Psychiatric: Yes (depression) Reproductive: No Respiratory: Yes (asthma) Immunizations Current: Yes Migraines: Yes Radiation Therapy: Yes (HX) Thyroid Disease: No ?: Not Menopausal: No : 4 Para: 3 Miscarriage: 1 Ovarian Cysts: Yes Tubal Ligation: Yes Past Surgical History Narrative Surgical The patient's past surgical history is significant for an ovarian cyst resection , throat cancer resection, brain tumor biopsy Abdominal Surgery: Yes (TUMORS REMOVED FROM STOMACH) AICD: No Cardiac Surgery: No Section: Yes Coronary Artery Bypass Graft: No Ear Surgery: No Endocrine Surgery: No Eye Surgery: No Genitourinary Surgery: No Gynecologic Surgery: Yes (ovary cyst) Joint Replacement: No Neurologic Surgery: Yes (BENIGN BRAIN TUMOR REMOVED) Oral Surgery: Yes (BIOPSY OF THROAT) Pacemaker: No Thoracic Surgery: No Other Surgery: Yes (UTERINE TUMOR REMOVED/ 35 yrs ago throat cancer/ brain tumor 11 yrs ago) Family History Family Myocardial Infarction: Yes (grandmother, sister, uncle) Social History Alcohol Use: Yes (OCCASSIONALLY) Tobacco Use: Yes (1/2 PPD) 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 ) Allergies-Medications (Allergen,Severity, Reaction): Coded Allergies: Fish Containing Products (Verified Allergy, Severe, Anaphylaxis, 06/12/17) MRI PRECAUTION (Verified Allergy, Severe, ALLERGY TO MRI CONTRAST MEDIUM, 06/11/17) Sulfa (Sulfonamide Antibiotics) (Verified Allergy, Severe, SWELLING, 06/11) diatrizoate meglumine (Verified Allergy, Severe, SWELLS UP, 06/11/17) gadobenic acid (Verified Allergy, Severe, SWELLS UP, 06/11/17) gadodiamide (Verified Allergy, Severe, SWELLS UP, 06/11/17) gadoteridol (Verified Allergy, Severe, SWELLS UP, 06/11/17) iodixanol (Verified Allergy, Severe, SWELLS UP, 06/11/17) iohexol (Verified Allergy, Severe, SWELLS UP, 06/11/17) penicillin G (Verified Allergy, Severe, SWELLS UP, 06/11/17) Reported Meds & Prescriptions Reported Meds & Active Scripts Active Hydrochlorothiazide 25 Mg Tab 25 Mg PO BID Lisinopril 20 Mg Tab 20 Mg PO BID Propranolol (Propranolol HCl) 40 Mg Tab 40 Mg PO BID Topiramate 50 Mg Tab 50 Mg PO BID Review of Systems Except as stated in HPI: all other systems reviewed are Neg General / Constitutional: No: Fever Eyes: No: Visual changes HENT: Positive: Congestion, No: Headaches Cardiovascular: No: Chest Pain or Discomfort Respiratory: Positive: Cough, Shortness of Breath Gastrointestinal: Positive: Nausea, Vomiting, Diarrhea, Abdominal Pain, Changes in Bowel Habits, No: Hematemesis, Hematochezia, Indigestion, Loss of Appetite Genitourinary: No: Dysuria Musculoskeletal: No: Pain Skin: No Rash Neurologic: No: Weakness, Focal Abnormalities, Change in Mentation, Slurred Speech, Sensory Disturbance Psychiatric: No: Depression Endocrine: No: Polydipsia Hematologic/Lymphatic: No: Easy Bruising Physical Exam Narrative General: The patient is a well-developed well-nourished female in no acute distress. Head and Neck exam: Head is normocephalic atraumatic. Eyes: EOMI, pupils are equal round and reactive to light. Nose: Midline septum with pink mucous membranes Mouth: Dentition unremarkable. Moist mucus membranes. Posterior oropharynx is not erythematous. No tonsillar hypertrophy. Uvula midline. Airway patent. Neck: No palpable lymphadenopathy. No nuchal rigidity. No thyromegaly. Cardiovascular: Regular rate and rhythm without murmurs, gallops, or rubs. Lungs: Clear to auscultation bilaterally. No wheezes, rhonchi, or rales. Abdomen: Soft, with tenderness on palpation in the area just above the umbilicus with induration noted, tenderness on palpation also elicited on examination in bilateral upper quadrants of the abdomen. Negative Villagomez's sign. No guarding , rebound, or rigidity Normal bowel sounds are audible. No tenderness on palpation of McBurney's point. Extremities: No clubbing, cyanosis, or edema. 2+ pulses in all 4 extremities. No calf tenderness on palpation. Back: No spinous process tenderness to palpation. No costovertebral angle tenderness to palpation. Neurologic Exam: Grossly nonfocal. Skin Exam: No rash noted. Intact skin that is warm and dry. Data Data Last Documented VS Vital Signs Date Time Temp Pulse Resp B/P (MAP) Pulse Ox O2 Delivery O2 Flow Rate FiO2 06/11/17 20:14 98.9 74 18 188/115 (139) 100 Room Air Orders Orders Electrocardiogram (06/11/17 20:34) Complete Blood Count With Diff (06/11/17 20:34) Comprehensive Metabolic Panel (06/11/17 20:34) Creatine Kinase (Cpk) (06/11/17 20:34) Ckmb (Isoenzyme) Profile (06/11/17 20:34) Troponin I (06/11/17 20:34) B-Type Natriuretic Peptide (06/11/17 20:34) Prothrombin Time / Inr (Pt) (06/11/17 20:34) Act Partial Throm Time (Ptt) (06/11/17 20:34) Lipase (06/11/17 20:34) Urinalysis - C+S If Indicated (06/11/17 20:34) Magnesium (Mg) (06/11/17 20:34) Chest, Single Ap (06/11/17 20:34) Iv Access Insert/Monitor (06/11/17 20:34) Ecg Monitoring (06/11/17 20:34) Oximetry (06/11/17 20:34) Ed Urine Pregnancytest Poc (06/11/17 20:34) Ct Abd/Pel W/O Iv Contrast (06/11/17 20:38) Sodium Chlor 0.9% 1000 Ml Inj (Ns 1000 M (06/11/17 22:15) Morphine Inj (Morphine Inj) (06/11/17 22:15) Ondansetron Inj (Zofran Inj) (06/11/17 22:15) Morphine Inj (Morphine Inj) (06/11/17 22:45) Place In Observation (06/11/17 ) Vital Signs (Adult) Q4H (06/11/17 23:19) Activity Oob Ad Fannie (06/11/17 23:19) Intake + Output MARLEY.QSHIFT (06/11/17 23:19) Diet Regular Basic (06/12/17 Breakfast) Sodium Chlor 0.9% 1000 Ml Inj (Ns 1000 M (06/11/17 23:19) Sodium Chloride 0.9% Flush (Ns Flush) (06/11/17 23:30) Sodium Chloride 0.9% Flush (Ns Flush) (06/12/17 09:00) Ondansetron Inj (Zofran Inj) (06/11/17 23:30) Comprehensive Metabolic Panel (06/12/17 06:00) Complete Blood Count With Diff (06/12/17 06:00) Scd Bilateral/Knee High MARLEY.BID (06/11/17 23:19) Alvaro Bilateral/Knee High MARLEY.QSHIFT (06/11/17 23:20) Acetaminophen (Tylenol) (06/11/17 23:30) Acetamin-Hydrocod 325-5 Mg ([place] 5-325 (06/11/17 23:30) Morphine Inj (Morphine Inj) (06/11/17 23:30) Docusate Sodium-Senna (Radha-Colace) (06/12/17 09:00) Magnesium Hydroxide Liq (Milk Of Magnesi (06/11/17 23:30) Sennosides (Senokot) (06/11/17 23:30) Bisacodyl Supp (Dulcolax Supp) (06/11/17 23:30) Lactulose Liq (Lactulose Liq) (06/11/17 23:30) Propranolol (Inderal) (06/12/17 09:00) Topiramate (Topamax) (06/12/17 09:00) Consult General Surgery (06/11/17 ) Admit Order (Ed Use Only) (06/11/17 23:20) Labs Laboratory Tests Test 06/11/17 20:30 06/11/17 20:46 White Blood Count 4.9 TH/MM3 Red Blood Count 5.08 MIL/MM3 Hemoglobin 14.7 GM/DL Hematocrit 44.7 % Mean Corpuscular Volume 88.0 FL Mean Corpuscular Hemoglobin 28.9 PG Mean Corpuscular Hemoglobin Concent 32.8 % Red Cell Distribution Width 14.9 % Platelet Count 268 TH/MM3 Mean Platelet Volume 7.8 FL Neutrophils (%) (Auto) 53.0 % Lymphocytes (%) (Auto) 40.5 % Monocytes (%) (Auto) 4.2 % Eosinophils (%) (Auto) 1.9 % Basophils (%) (Auto) 0.4 % Neutrophils # (Auto) 2.6 TH/MM3 Lymphocytes # (Auto) 2.0 TH/MM3 Monocytes # (Auto) 0.2 TH/MM3 Eosinophils # (Auto) 0.1 TH/MM3 Basophils # (Auto) 0.0 TH/MM3 CBC Comment DIFF FINAL Differential Comment Prothrombin Time 10.1 SEC Prothromb Time International Ratio 1.0 RATIO Activated Partial Thromboplast Time 30.2 SEC Blood Urea Nitrogen 9 MG/DL Creatinine 1.22 MG/DL Random Glucose 66 MG/DL Total Protein 8.5 GM/DL Albumin 3.8 GM/DL Calcium Level 8.4 MG/DL Magnesium Level 2.1 MG/DL Alkaline Phosphatase 91 U/L Aspartate Amino Transf (AST/SGOT) 20 U/L Alanine Aminotransferase (ALT/SGPT) 16 U/L Total Bilirubin 0.5 MG/DL Sodium Level 139 MEQ/L Potassium Level 3.5 MEQ/L Chloride Level 106 MEQ/L Carbon Dioxide Level 23.5 MEQ/L Anion Gap 10 MEQ/L Estimat Glomerular Filtration Rate 56 ML/MIN Total Creatine Kinase 84 U/L Troponin I LESS THAN 0.02 NG/ML B-Type Natriuretic Peptide 43 PG/ML Lipase 85 U/L Urine Color YELLOW Urine Turbidity CLEAR Urine pH 6.5 Urine Specific [place] 1.007 Urine Protein NEG mg/dL Urine Glucose (UA) NEG mg/dL Urine Ketones NEG mg/dL Urine Occult Blood NEG Urine Nitrite NEG Urine Bilirubin NEG Urine Urobilinogen LESS THAN 2.0 MG/DL Urine Leukocyte Esterase NEG Urine Squamous Epithelial Cells 1 /hpf Urine Mucus FEW /lpf Microscopic Urinalysis Comment CULT NOT INDICATED MDM Medical Decision Making Medical Screen Exam Complete: Yes Emergency Medical Condition: Yes Medical Record Reviewed: Yes Interpretation(s) Last Impressions Abdomen/Pelvis CT 06/11/172037 Signed Impressions: Service Date/Time: Sunday, June 11, 2017 20:54 - CONCLUSION: 1. Anterior abdominal wall hernia containing mesenteric fat. This is more prominent than on the prior study there is now increased density in the herniated fat with possible small fluid collection. Likely represents inflammatory change. There is no definite bowel hernia. 2. Unremarkable bowel gas pattern with no evidence of obstruction. Miguel Lutz MD Chest X-Ray 06/11/172033 Signed Impressions: Service Date/Time: Sunday, June 11, 2017 21:15 - CONCLUSION: No acute disease. Miguel Lutz MD Differential Diagnosis Incarcerated hernia, versus umbilical hernia containing fat as previously noted in 2016, versus pancreatitis, versus biliary colic. Narrative Course During the course of the patients emergency department visit, the patients history, examination, and differential diagnosis were reviewed with the patient. The patient was placed on a court recording monitor with oximetry and frequent blood pressure monitoring. The patient had IV access obtained and blood work sent for analysis. The patient was initially provided normal saline IV fluids, morphine for pain, Zofran for nausea. The patients laboratory studies were reviewed and remarkable for a CBC that is within normal limits. CMP is remarkable for creatinine 1.22, glucose 66, CPK 84 , troponin I less than 0.02, lipase 85, BNP 43, PT 10.1, PTT 30.2. Urinalysis is unremarkable. Radiology studies were reviewed and remarkable for a chest x-ray that shows no acute abnormality. CT scan of the abdomen and pelvis shows an anterior abdominal wall hernia containing mesenteric fat. This is more prominent than on the prior study. There is now increased density in the herniated fat with possible small fluid collection. Likely represents inflammatory change. There is no definite bowel hernia. Unremarkable bowel gas pattern with no evidence of obstruction. The patient was reexamined and the patient was noted to have continued pain surrounding this abdominal wall hernia site. The patient will be admitted to the hospital for intractable abdominal pain in consultation with the surgeon for consideration of further intervention/repair. The patients results were discussed with the patient, including the plan of care. I explained that further testing and/ or monitoring is indicated based on the patients history, examination, and/ or laboratory findings. Therefore, I recommended admission for additional evaluation. The patient expressed understanding and was agreeable with this plan. The patient was admitted to the hospital in stable condition and sent to a bed under the care of [facility] service. Physician Communication Physician Communication The patient's case including history, pertinent physical examination findings, and laboratory studies were discussed with Dr. Benitez. It was agreed that the patient would be admitted to the [facility] service. Diagnosis Primary Impression: Intractable abdominal pain Additional Impression: Abdominal hernia Qualified Codes: K43.9 - Ventral hernia without obstruction or gangrene Admitting Information Admitting Physician Requests: Observation Scripts Hydrocodone-Acetaminophen ([place]) 5 Mg-325 Mg Tab 1 TAB PO Q4H Y for PAIN, #20 TAB 0 Refills Prov: Leo Villareal MD 06/12/17 Nilda Santos MD Jun 11, 2017 20:27
[2017-06-11 20:58] LABS: AUTOMATED NEUTROPHIL # 2.6 TH/MM3 (1.8-7.7); BASOPHIL % 0.4 % (0.0-2.0); EOSINOPHIL # 0.1 TH/MM3 (0-0.4); EOSINOPHIL % 1.9 % (0.0-4.0); HEMATOCRIT 44.7 % (35.0-46.0); HEMOGLOBIN 14.7 GM/DL (11.6-15.3); LYMPH % 40.5 % (9.0-44.0); MEAN CORPUSCULAR HEMOGLOBIN 28.9 PG (27.0-34.0); MEAN CORPUSCULAR HGB CONC 32.8 % (32.0-36.0); MEAN PLATELET VOLUME 7.8 FL (7.0-11.0); MONO % 4.2 % (0.0-8.0); MONOCYTE # 0.2 TH/MM3 (0-0.9); PLATELET COUNT 268 TH/MM3 (150-450); RED BLOOD COUNT 5.08 MIL/MM3 (4.00-5.30); RED CELL DISTRIBUTION WIDTH 14.9 % (11.6-17.2); WHITE BLOOD COUNT 4.9 TH/MM3 (4.0-11.0)
[2017-06-11 21:14] LABS: PROTHROMBIN TIME - PATIENT 10.1 SEC (9.8-11.6)
--- NOTE | 2017-06-11 21:15 | RADRPT ---
EXAM DATE/TIME: 06/11/2017 20:54 [facility] COMPARISON: CT ABDOMEN & PELVIS W/O CONTRAST, August 17, 2015, 21:13. INDICATIONS : Abdominal pain, vomiting and diarrhea. ORAL CONTRAST: No oral contrast ingested. RADIATION DOSE: 11.39 CTDIvol (mGy) MEDICAL HISTORY : None SURGICAL HISTORY : None. ENCOUNTER: Initial ACUITY: 1 day PAIN SCALE: 10/10 LOCATION: abdomen TECHNIQUE: Volumetric scanning of the abdomen and pelvis was performed. Using automated exposure control and adjustment of the mA and/or kV according to patient size, radiation dose was kept as low as reasonably achievable to obtain optimal diagnostic quality images. DICOM format image data is av ailable electronically for review and comparison. FINDINGS: LOWER LUNGS: The visualized lower lungs are clear. LIVER: Homogeneous density without lesion. There is no dilation of the biliary tree. No calcifi ed gallstones. The gallbladder remains unremarkable in appearance. SPLEEN: Normal size without lesion. PANCREAS: Within normal limits. KIDNEYS: Normal in size and shape. There is no mass, stone, or hydronephrosis. ADRENAL GLANDS: Within normal limits. VASCULAR: There is no aortic aneurysm. BOWEL/MESENTERY: The stomach, small bowel, and colon demonstrate no acute abnormality. There is no free intraperitoneal air or fluid. ABDOMINAL WALL: Anterior abdominal wall hernia is again noted obtaining mesenteric fat. There is increased density within the fat compared to the prior study and there may be a small collection of f luid. Hernia is slightly more prominent than on the prior exam. There is no definite bowel within the hernia. RETROPERITONEUM: There is no lymphadenopathy. BLADDER: No wall thickening or mass. REPRODUCTIVE: Within normal limits. INGUINAL: There is no lymphadenopathy or hernia. MUSCULOSKELETAL: Within normal limits for patient age. CONCLUSION: 1. Anterior abdominal wall hernia containing mesenteric fat. This is more prominent than on the prior study there is now increased density in the herniated fat with possible small fluid collection. Like ly represents inflammatory change. There is no definite bowel hernia. 2. Unremarkable bowel gas pattern with no evidence of obstruction. Miguel Lutz MD on June 11, 2017 at 21:09 Board Certified Radiologist. This report was verified electronically.
[2017-06-11 21:24] LABS: BILIRUBIN, URINE NEG (NEG); BLOOD, URINE NEG (NEG); GLUCOSE,URINE NEG (NEG); KETONE, URINE NEG (NEG); MUCUS URINE FEW /lpf (OCC); NITRITE,URINE NEG (NEG); PH, URINE 6.5 (5.0-8.5); SQUAMOUS EPITHELIAL CELL URINE 1 /hpf (0-5); URINE COLOR YELLOW (YELLW/STRAW); URINE LEUKOCYTE ESTERASE NEG (NEG)
[2017-06-11 21:35] LABS: ALBUMIN 3.8 GM/DL (3.4-5.0); AST (GOT) 20 U/L (15-37); BICARBONATE 23.5 MEQ/L (21.0-32.0); BLOOD UREA NITROGEN 9 MG/DL (7-18); CALCIUM 8.4 MG/DL (8.5-10.1); CHLORIDE 106 MEQ/L (98-107); CREATININE 1.22 MG/DL (0.50-1.00); GLOMERULAR FILTRATION RATE 56 ML/MIN (>89); GLUCOSE,RANDOM 66 MG/DL (74-106); LIPASE 85 U/L (73-393); MAGNESIUM 2.1 MG/DL (1.5-2.5); SODIUM (NA) 139 MEQ/L (136-145)
[2017-06-11 21:36] LABS: ALT (GPT) 16 U/L (10-53)
[2017-06-11 21:39] LABS: ALKALINE PHOSPHATASE 91 U/L (45-117); TOTAL BILIRUBIN ADULT 0.5 MG/DL (0.2-1.0); TOTAL PROTEIN 8.5 GM/DL (6.4-8.2); TROPONIN I LESS THAN 0.02 NG/ML (0.02-0.05)
--- NOTE | 2017-06-11 21:54 | RADRPT ---
EXAM DATE/TIME: 06/11/2017 21:15 [facility] COMPARISON: CHEST SINGLE AP, March 22, 2017, 18:04. INDICATIONS : Nausea, vomiting, diarrhea, abdominal pain. MEDICAL HISTORY : Hypertension. Smoker. Asthma. SURGICAL HISTORY : None. ENCOUNTER: Initial ACUITY: 2 days PAIN SCORE: 10/10 LOCATION: Bilateral upper abdomen. FINDINGS: A single view of the chest demonstrates the lungs to be symmetrically aerated without evidence of mas s, infiltrate or effusion. The cardiomediastinal contours are unremarkable. Osseous structures are intact. CONCLUSION: No acute disease. Miguel Lutz MD on June 11, 2017 at 21:52 Board Certified Radiologist. This report was verified electronically.
[2017-06-11] MEDS ORDERED: SODIUM CHLOR 0.9% 1000 ML INJ 1,000 ML IV ONE (22:15)
[2017-06-11] MEDS ORDERED: MORPHINE SULFATE 4 MG/ML INJ IV PUSH ONE (22:15)
[2017-06-11] MEDS ORDERED: ONDANSETRON HCL 4 MG/2 ML VIAL IV PUSH ONE (22:15)
[2017-06-11] MEDS ORDERED: MORPHINE SULFATE 2 MG/ML INJ IV PUSH ONE (22:45)
[2017-06-11] MEDS ORDERED: SODIUM CHLOR 0.9% 1000 ML INJ 1,000 ML IV SCH (23:19)
--- NOTE | 2017-06-11 23:21 | HHI.HP ---
HPI Service [facility] Primary Care Physician Jason Browne MD Admission Diagnosis Diagnoses: (1) Intractable abdominal pain Diagnosis: Principal (2) Ventral hernia Diagnosis: Principal (3) HTN (hypertension) Diagnosis: Principal (4) BJORN (acute kidney injury) Diagnosis: Principal (5) Tobacco abuse Diagnosis: Principal Travel History International Travel<30 Days: No Contact w/Intl Traveler <30 Da: No Traveled to Known Affected Are: No History of Present Illness This is a 51-year-old female with PMH of HTN, Lupus, Throat CA, Meningioma, h/o Cocaine Abuse and Tobacco Abuse who presented to the ER with complaints of abdominal pain x1 day. States pain is generalized, sharp, constant, worse w/ cough. Also reports associated diarrhea, approximately 10-12 episodes, now resolved. Denies nausea, vomiting, fever or chills. No h/o similar symptoms. Today, noticed "bulge" on her abdomen that became larger w/ coughing. On arrival, BP 188/115, HR 74, O2 sat 100% on RA, Afebrile. CBC unremarkable. Chemistry unremarkable except for creatinine 1.22, previously 0.87 on 03/23/17. INR 1.0. UA negative. CT Abd/Pelvis w/ anterior abdominal wall hernia containing mesenteric fat, more prominent than on prior study with small fluid collection possibly inflammatory change. CXR with no acute findings. S/p analgesics in ER, was to be d/c'd home however had recurrent severe pain. Review of Systems Except as stated in HPI: all other systems reviewed are Neg ROS: 14 point review of systems otherwise negative. Past Family Social History Past Medical History PMH: HTN, Lupus, Throat CA, Meningioma, h/o Cocaine Abuse and Tobacco Abuse Past Surgical History PAST SURGICAL HISTORY: Ovarian Cyst Resection, Throat CA Resection, Brain Tumor Biopsy, Allergies: Coded Allergies: MRI PRECAUTION (Verified Allergy, Severe, ALLERGY TO MRI CONTRAST MEDIUM, 06/11/17) Sulfa (Sulfonamide Antibiotics) (Verified Allergy, Severe, SWELLING, 06/11) diatrizoate meglumine (Verified Allergy, Severe, SWELLS UP, 06/11/17) gadobenic acid (Verified Allergy, Severe, SWELLS UP, 06/11/17) gadodiamide (Verified Allergy, Severe, SWELLS UP, 06/11/17) gadoteridol (Verified Allergy, Severe, SWELLS UP, 06/11/17) iodixanol (Verified Allergy, Severe, SWELLS UP, 06/11/17) iohexol (Verified Allergy, Severe, SWELLS UP, 06/11/17) penicillin G (Verified Allergy, Severe, SWELLS UP, 06/11/17) Family History PAST FAMILY HISTORY: Reviewed. No h/o DM or CAD Social History PAST SOCIAL HISTORY: Occasional alcohol. Smokes 1/2ppd. H/o Cocaine Physical Exam Vital Signs Vital Signs Date Time Temp Pulse Resp B/P (MAP) Pulse Ox O2 Delivery O2 Flow Rate FiO2 06/11/17 20:14 98.9 74 18 188/115 (139) 100 Room Air Physical Exam PE: GENERAL: Middle-aged female in no acute distress. HEENT: PERRLA, EOMI. No scleral icterus or conjunctival pallor. No lid lag or facial droop. CARDIOVASCULAR: Regular rate and rhythm. No obvious murmurs to auscultation. No chest tenderness to palpation. RESPIRATORY: No obvious rhonchi or wheezing. Clear to auscultation. Breath sounds equal bilaterally. GASTROINTESTINAL: Abdomen soft, non-tender, nondistended. BS normal. +ventral hernia, mild tenderness to palpation, no erythema MUSCULOSKELETAL: Extremities without clubbing, cyanosis, or edema. No obvious deformities. NEUROLOGICAL: Awake, alert and oriented x4. No focal neurologic deficits. Moving both upper and lower extremities spontaneously. Laboratory Laboratory Tests Test 06/11/17 20:30 06/11/17 20:46 White Blood Count 4.9 Red Blood Count 5.08 Hemoglobin 14.7 Hematocrit 44.7 Mean Corpuscular Volume 88.0 Mean Corpuscular Hemoglobin 28.9 Mean Corpuscular Hemoglobin Concent 32.8 Red Cell Distribution Width 14.9 Platelet Count 268 Mean Platelet Volume 7.8 Neutrophils (%) (Auto) 53.0 Lymphocytes (%) (Auto) 40.5 Monocytes (%) (Auto) 4.2 Eosinophils (%) (Auto) 1.9 Basophils (%) (Auto) 0.4 Neutrophils # (Auto) 2.6 Lymphocytes # (Auto) 2.0 Monocytes # (Auto) 0.2 Eosinophils # (Auto) 0.1 Basophils # (Auto) 0.0 CBC Comment DIFF FINAL Differential Comment Prothrombin Time 10.1 Prothromb Time International Ratio 1.0 Activated Partial Thromboplast Time 30.2 Blood Urea Nitrogen 9 Creatinine 1.22 Random Glucose 66 Total Protein 8.5 Albumin 3.8 Calcium Level 8.4 Magnesium Level 2.1 Alkaline Phosphatase 91 Aspartate Amino Transf (AST/SGOT) 20 Alanine Aminotransferase (ALT/SGPT) 16 Total Bilirubin 0.5 Sodium Level 139 Potassium Level 3.5 Chloride Level 106 Carbon Dioxide Level 23.5 Anion Gap 10 Estimat Glomerular Filtration Rate 56 Total Creatine Kinase 84 Troponin I LESS THAN 0.02 B-Type Natriuretic Peptide 43 Lipase 85 Urine Color YELLOW Urine Turbidity CLEAR Urine pH 6.5 Urine Specific [place] 1.007 Urine Protein NEG Urine Glucose (UA) NEG Urine Ketones NEG Urine Occult Blood NEG Urine Nitrite NEG Urine Bilirubin NEG Urine Urobilinogen LESS THAN 2.0 Urine Leukocyte Esterase NEG Urine Squamous Epithelial Cells 1 Urine Mucus FEW Microscopic Urinalysis Comment CULT NOT INDICATED Result Diagram: 06/11/17202906/11/172029 Caprini VTE Risk Assessment Caprini VTE Risk Assessment: No/Low Risk (score <= 1) Caprini Risk Assessment Model Point Value = 1 Point Value = 2 Point Value = 3 Point Value = 5 Age 41-60 Minor surgery BMI > 25 kg/m2 Swollen legs Varicose veins or History of unexplained or recurrent spontaneous Oral contraceptives or hormone replacement Sepsis (< 1 month) Serious lung disease, including pneumonia (< 1 month) Abnormal pulmonary function Acute myocardial infarction Congestive heart failure (< 1 month) History of inflammatory bowel disease Medical patient at bed rest Age 61-74 Arthroscopic surgery Major open surgery (> 45 min) Laparoscopic surgery (> 45 min) Malignancy Confined to bed (> 72 hours) Immobilizing plaster cast Central venous access Age >= 75 History of VTE Family history of VTE Factor V Leiden Prothrombin [id number] Lupus anticoagulant Anticardiolipin antibodies Elevated serum homocysteine Heparin-induced thrombocytopenia Other congenital or acquired thrombophilia Stroke (< 1 month) Elective arthroplasty Hip, pelvis, or leg fracture Acute spinal cord injury (< 1 month) Prophylaxis Regimen Total Risk Factor Score Risk Level Prophylaxis Regimen 0-1 Low Early ambulation 2 Moderate Order ONE of the following: *Sequential Compression Device (SCD) *Heparin 5000 units SQ BID 3-4 Higher Order ONE of the following medications: *Heparin 5000 units SQ TID *Enoxaparin/Lovenox 40 mg SQ daily (WT < 150 kg, CrCl > 30 mL/min) *Enoxaparin/Lovenox 30 mg SQ daily (WT < 150 kg, CrCl > 10-29 mL/min) *Enoxaparin/Lovenox 30 mg SQ BID (WT < 150 kg, CrCl > 30 mL/min) AND/OR *Sequential Compression Device (SCD) 5 or more Highest Order ONE of the following medications: *Heparin 5000 units SQ TID (Preferred with Epidurals) *Enoxaparin/Lovenox 40 mg SQ daily (WT < 150 kg, CrCl > 30 mL/min) *Enoxaparin/Lovenox 30 mg SQ daily (WT < 150 kg, CrCl > 10-29 mL/min) *Enoxaparin/Lovenox 30 mg SQ BID (WT < 150 kg, CrCl > 30 mL/min) AND *Sequential Compression Device (SCD) Assessment and Plan Problem List: (1) Intractable abdominal pain ICD Code: R10.9 - Unspecified abdominal pain Status: Acute (2) Ventral hernia ICD Code: K43.9 - Ventral hernia without obstruction or gangrene (3) HTN (hypertension) ICD Code: I10 - Essential (primary) hypertension (4) BJORN (acute kidney injury) ICD Code: N17.9 - Acute kidney failure, unspecified (5) Tobacco abuse ICD Code: Z72.0 - Tobacco use Assessment and Plan A/P: 1. Intractable Abdominal Pain: acute onset of abdominal pain associated w/ diarrhea, diarrhea now resolved. S/p analgesics in ER w/ ongoing pain complaints. Analgesics/antiemetics as needed. 2. Ventral Hernia: pain at site of hernia, CT Abd/Pelvis w/ anterior abdominal wall hernia containing fat, now more prominent, mild inflammatory change, images reviewed by me. +tenderness to palpation. Consult Gen Sx for further evaluation, likely outpatient surgical intervention. 3. HTN: Uncontrolled. BP 180's, likely compounded by pain complaints. Optimize pain control. Resume home Propranolol 4. BJORN: Creatinine 1.22, previously 0.87 on 03/23/17. UA negative for UTI. IVF for hydration, repeat labs in a.m. 5. Tobacco Abuse: Pt counselled. NicoDerm prn if needed. 6. DVT Prophylaxis: SCD/Teds 7. Social work for d/c planning as needed. 8. Labs/records reviewed by me, case discussed at length w/ ER physician. Seema Benitez MD Jun 11, 2017 23:21
[2017-06-11] MEDS ORDERED: BISACODYL 10 MG SUPP RECTAL PRN (23:30)
[2017-06-11] MEDS ORDERED: MORPHINE SULFATE 2 MG/ML INJ IV PUSH PRN (23:30)
[2017-06-11] MEDS ORDERED: SODIUM CHLORIDE 0.9% FLUSH 10 ML FLUSH IV FLUSH PRN (23:30)
[2017-06-11] MEDS ORDERED: LACTULOSE SYRUP 20 GM/30 ML CUP PO PRN (23:30)
[2017-06-11] MEDS ORDERED: ONDANSETRON HCL 4 MG/2 ML VIAL IVP PRN (23:30)
[2017-06-11] MEDS ORDERED: MAGNESIUM HYDROXIDE SUSP 30 ML CUP PO PRN (23:30)
[2017-06-11] MEDS ORDERED: ACETAMINOPHEN 325 MG TAB PO PRN (23:30)
[2017-06-11] MEDS ORDERED: SENNOSIDES 8.6 MG TAB PO PRN (23:30)
[2017-06-11] MEDS ORDERED: ACETAMINOPHEN/HYDROcodone 325 MG/5 MG TAB PO PRN (23:30)
[2017-06-11 23:42] VITALS: BP 182/100; PULSE 58; RESP 16; O2SAT 100
[2017-06-12 00:27] VITALS: BP 174/102
[2017-06-12 03:04] VITALS: BP 171/98; PULSE 58; RESP 18; TEMP 98.4; O2SAT 99
[2017-06-12 08:10] VITALS: BP 123/84; PULSE 63; RESP 20; TEMP 98; O2SAT 99
[2017-06-12 08:29] LABS: AUTOMATED NEUTROPHIL # 1.8 TH/MM3 (1.8-7.7); BASOPHIL % 0.2 % (0.0-2.0); EOSINOPHIL # 0.1 TH/MM3 (0-0.4); EOSINOPHIL % 2.2 % (0.0-4.0); HEMATOCRIT 38.2 % (35.0-46.0); HEMOGLOBIN 12.7 GM/DL (11.6-15.3); LYMPH % 49.2 % (9.0-44.0); MEAN CELL VOLUME 86.8 FL (80.0-100.0); MEAN CORPUSCULAR HGB CONC 33.4 % (32.0-36.0); MEAN PLATELET VOLUME 7.8 FL (7.0-11.0); MONO % 3.9 % (0.0-8.0); MONOCYTE # 0.2 TH/MM3 (0-0.9); NEUT % 44.5 % (16.0-70.0); PLATELET COUNT 214 TH/MM3 (150-450); RED CELL DISTRIBUTION WIDTH 14.9 % (11.6-17.2)
[2017-06-12] MEDS: SODIUM CHLORIDE 0.9% FLUSH 10 ML FLUSH IV FLUSH SCH ×2 (09:00→20:58)
[2017-06-12 09:03] LABS: ALBUMIN 3.1 GM/DL (3.4-5.0); ALKALINE PHOSPHATASE 74 U/L (45-117); ALT (GPT) 12 U/L (10-53); AST (GOT) 12 U/L (15-37); BICARBONATE 24.1 MEQ/L (21.0-32.0); BLOOD UREA NITROGEN 7 MG/DL (7-18); CALCIUM 8.1 MG/DL (8.5-10.1); CHLORIDE 109 MEQ/L (98-107); CREATININE 0.92 MG/DL (0.50-1.00); GLOMERULAR FILTRATION RATE 78 ML/MIN (>89); GLUCOSE,RANDOM 103 MG/DL (74-106); SODIUM (NA) 141 MEQ/L (136-145); TOTAL BILIRUBIN ADULT 0.8 MG/DL (0.2-1.0); TOTAL PROTEIN 6.9 GM/DL (6.4-8.2)
[2017-06-12] MEDS: PROPRANOLOL HCL 40 MG TAB PO SCH ×2 (09:11→20:57)
[2017-06-12] MEDS: DOCUSATE SODIUM 50 MG/SENNA 8.6 MG TAB PO SCH ×2 (09:11→20:57)
[2017-06-12] MEDS: TOPIRAMATE 25 MG TAB PO SCH ×2 (09:12→20:57)
[2017-06-12] MEDS ORDERED: POTASSIUM CHLORIDE 20 MEQ PWD PACKET PO ONE (09:45)
[2017-06-12] MEDS ORDERED: VANCOMYCIN INJ 1,000 MG in SODIUM CHLOR 0.9% 250 ML INJ 250 ML IV SCH (10:30)
--- NOTE | 2017-06-12 11:48 | HHI.PR ---
Subjective Remarks Suspicion for strangulate hernia. Patient will have surgical hernia repair. Pain is not improving thus far, but pain treatments are beneficial. No new complaints. Patient be transitioned to inpatient given this new information. Objective Vital Signs Date Time Temp Pulse Resp B/P (MAP) Pulse Ox O2 Delivery O2 Flow Rate FiO2 06/12/17 08:10 98.0 63 20 123/84 (97) 99 06/12/17 03:04 98.4 58 18 171/98 (122) 99 06/12/17 01:55 06/12/17 00:27 174/102 (126) 06/11/17 23:42 58 16 182/100 (127) 100 Room Air 06/11/17 20:14 98.9 74 18 188/115 (139) 100 Room Air I/O 06/11/17 06/11/17 06/11/17 06/12/17 06/12/17 06/12/17 07:00 15:00 23:00 07:00 15:00 23:00 Intake Total 1000 ml Balance 1000 ml Intake IV Total 1000 ml # Voids 1 Result Diagram: 06/12/17 0806/12/17 08 Objective Remarks GENERAL: NAD, A&Ox3 HEAD: Normocephalic. NECK: Supple, trachea midline. No lymphadenopathy. EYES: No scleral icterus. No injection or drainage. CARDIOVASCULAR: Regular rate and rhythm without murmurs, gallops, or rubs. RESPIRATORY: Breath sounds equal bilaterally. No accessory muscle use. GASTROINTESTINAL: Abdomen soft, abdominal distention with tenderness. MUSCULOSKELETAL: No cyanosis, or edema. SKIN: Warm and dry. NEURO: No focal neurological deficitis. A/P Problem List: (1) Incarcerated hernia of abdominal cavity ICD Code: K45.0 - Other specified abdominal hernia with obstruction, without gangrene (2) BJORN (acute kidney injury) ICD Code: N17.9 - Acute kidney failure, unspecified (3) HTN (hypertension) ICD Code: I10 - Essential (primary) hypertension (4) Ventral hernia ICD Code: K43.9 - Ventral hernia without obstruction or gangrene (5) Tobacco abuse ICD Code: Z72.0 - Tobacco use (6) Intractable abdominal pain ICD Code: R10.9 - Unspecified abdominal pain Status: Acute (7) Abdominal hernia ICD Code: K46.9 - Unspecified abdominal hernia without obstruction or gangrene Status: Acute Assessment and Plan 51-year-old female admitted secondary to irretractable abdominal pain and presence of hernia Irretractable [place] pain Ventral hernia Incarcerated hernia Continue as needed pain treatments Surgery following Nothing by mouth IV hydration Plan for surgical repair this afternoon Hypertension Uncontrolled Some of this may be secondary to pain Continue propranolol at baseline Begin IV enalapril Acute kidney injury IV hydration Avoid nephrotoxins Monitor renal function Nicotine dependence Patient counseled to quit NicoDerm as needed DVT prophylaxis SCDs Problem Qualifiers (1) Abdominal hernia: Qualified Codes: K43.9 - Ventral hernia without obstruction or gangrene Kaleb Wilkinson MD Jun 12, 2017 11:48
[2017-06-12] MEDS ORDERED: KETOROLAC TROMETHAMINE 30 MG/ML (IVP) VIAL IV PUSH ONE (12:00)
[2017-06-12] MEDS ORDERED: ROCURONIUM INJ 50 MG/5 ML SYRINGE IV PUSH ONE (12:00)
[2017-06-12] MEDS ORDERED: GLYCOPYRROLATE 1 MG/5 ML SYRINGE IV PUSH ONE (12:00)
[2017-06-12] MEDS ORDERED: ENALAPRILAT 1.25 MG/ML VIAL IV PUSH PRN (12:00)
[2017-06-12] MEDS ORDERED: ONDANSETRON HCL 4 MG/2 ML VIAL IV ONE (12:00)
[2017-06-12] MEDS ORDERED: LIDOCAINE HCL 1% PF 5 ML SYRINGE OTHER ONE (12:00)
[2017-06-12] MEDS ORDERED: PROPOFOL 200 MG/20 ML AMP IV ONE (12:00)
[2017-06-12] MEDS ORDERED: DEXAMETHASONE SOD PHOS 4 MG/ML VIAL IV ONE (12:00)
[2017-06-12] MEDS ORDERED: LACTATED RINGER'S 1000 ML INJ 1,000 ML IV ONE (12:00)
[2017-06-12] MEDS ORDERED: NEOSTIGMINE 5 MG/5 ML SYRINGE IV PUSH ONE (12:00)
[2017-06-12 12:30] VITALS: BP 145/101; PULSE 50; RESP 18; TEMP 98; O2SAT 98
[2017-06-12] MEDS ORDERED: BUPIVACAINE/EPINEPHRINE 0.25% 50 ML VIAL ONE ×2 (12:56→16:40)
--- NOTE | 2017-06-12 13:34 | MB ---
cc: OFE BAH M.D., DAVID G. M.D. DATE OF CONSULTATION: 06/12/17 REASON FOR CONSULTATION Ventral hernia with intractable pain. BRIEF HISTORY This is a 51-year-old -Citizen Of [place] woman who has a history of hypertension, lupus, meningioma, tobacco abuse, prior C-sections, and hysterectomy who developed diarrhea a couple days ago and then nausea with emesis. Following the nausea with emesis, she developed increasing discomfort associated with a lump in the supraumbilical position. She thought the lump was something else besides a hernia, but the pain became so significant she came to the emergency department. Workup included a CT scan of the abdomen and pelvis which shows an incarcerated supraumbilical ventral hernia containing omental fat. The patient also has an umbilical hernia. The patient has been able to eat and drink without further nausea or emesis and she had a normal bowel movement yesterday. ALLERGIES SHE HAS MULTIPLE ALLERGIES INCLUDING MRI CONTRAST, SULFA, DIATRIZOATE, MEGLUMINE, GADOBENIC ACID, GADODIAMIDE, GADOTERIDOL, IODIXANOL, IOHEXOL, AND PENICILLIN. ALL OF THESE THINGS CAUSE HER TO HAVE SWELLING. MEDICATIONS Her routine medications include - 1. Medication for hypertension. 2. Medication for seizure disorder. PREVIOUS SURGERIES 1. Hysterectomy. 2. C-sections. 3. Brain tumor biopsy for a meningioma. 4. Hysterectomy. 5. In her computer it says throat cancer resection, but she did not share that with me. FAMILY HISTORY Significant for stroke in her father. Her mother is alive and well. SOCIAL HISTORY She admits to drinking wine coolers. She is a smoker, trying to quit. Apparently, there is a remote history of cocaine use. She denies HIV or hepatitis risk factors at this time. REVIEW OF SYSTEMS She denies unusual bleeding tendencies. She wears corrective lenses for her vision. She denies hearing or swallowing problems but does have sinus inflammatory changes. She swells from her lupus. She denies primary asthma, bronchitis or pneumonia. She denies history of heart disease, heart attack chest pain, irregular heartbeat. She says she has been discovered to have a heart murmur in the past. She has acid reflux disease. She has never had an upper endoscopy or a colonoscopy. She denies blood in the stool. She denies known liver or kidney disease. She has no history of strokes but a history of seizures where she has passing out episodes for which she takes the Topamax. She last had an episode like this about two months ago. She is treated by her primary care physician Dr. Bah for this. She has not seen a neurologist according to her. She denies ever being treated with blood thinning medications. PHYSICAL EXAMINATION GENERAL: She is a middle-aged, -Citizen Of [place] woman who is in no acute distress. She is pleasant and cooperative with exam and accompanied by three family members. VITAL SIGNS: Her temperature most recently was 98, pulse 63, respiratory rate 20, blood pressure 123/84, O2 sat 99%. HEENT: She is normocephalic, atraumatic. Her pupils are 3, round and sluggishly reactive to light. Her sclerae are anicteric. Her oropharynx is clear without mucosal lesions. She has good dentition. She appears to have non-swollen tonsils. NECK: Her neck is supple without adenopathy. She has no cervical lymphadenopathy, no thyromegaly and no evidence of carotid bruits. LUNGS: She has equal bilateral breath sounds. HEART: Her heart sounds at this time are regular without obvious murmur, rub or gallop. BREASTS/GENITAL/RECTAL: Exams were deferred. She says she does have a clip in her left breast following a benign biopsy. ABDOMEN: Her abdomen is soft and nondistended. She is tender in the supraumbilical midline where there is a palpable lump there consistent with incarcerated supraumbilical epigastric hernia. She has a small umbilical hernia that is reducible and nontender. Her low transverse scars from her C-sections and hysterectomy are difficult to detect. She has normal bowel sounds. No abdominal bruits are noted. EXTREMITIES: Her extremities show no cyanosis, clubbing or edema. She has got equal bilateral radial and dorsalis pedis pulses. NEUROLOGICALLY: She is awake and alert and oriented. She has equal bilateral patient registration supervisor strength and no gross motor or sensory deficit. LABORATORY DATA Her laboratory values show a white count of 4 with 49% lymphs, she has 12.7 hemoglobin, a platelet count of 214. Coagulation studies show an INR 1, a PTT of 30.2. Potassium is 32, creatinine is 0.92, her albumin is 3.1. Urinalysis is negative. IMAGING Her chest x-ray was negative. Her CT scan shows the umbilical and epigastric supraumbilical ventral incisional hernia with incarcerated omental fat. ASSESSMENT This is a 51-year-old woman with acute increase in size of a supraumbilical palpable mass that is now significantly tender. It was increased in size and followed multiple episodes of nausea with emesis. This is consistent with an incarcerated symptomatic supraumbilical epigastric ventral hernia. Due to the acute symptoms, there certainly is indication for urgent surgery to repair this hernia. I discussed in detail with the patient and her family the option of surgical therapy including open repair with primary suture closure and reinforcement with mesh. Discussed the risks of bleeding, infection, injury to intraabdominal contents, recurrence of a hernia, postoperative wound problems, DVT, pulmonary embolus, and use of sequential compression devices and they understand. They wish to proceed. Unfortunately, she just ate half of a biscuit and we will have to delay her surgery for six hours. She should be n.p.o. at this time and I discussed that with her bedside nurse. Consent will be obtained. Vancomycin for antibiotic will be provided. Sequential compression device will be used. MD JONATHAN Lynch/ALTHEA /10:07 AM /12:51 PM
[2017-06-12 15:55] VITALS: BP 161/105; PULSE 50; RESP 24; TEMP 97.6; O2SAT 99
[2017-06-12] MEDS ORDERED: METOPROLOL TARTRATE 25 MG TAB PO PRN (16:00)
[2017-06-12] MEDS ORDERED: SODIUM CHLORID 0.9% 500 ML IV PRN (16:00)
[2017-06-12] MEDS ORDERED: CHLORHEXIDINE GLUCONATE 2 % 1 PACK (2 CLOTHS) TOPICAL PRN (16:00)
[2017-06-12] MEDS ORDERED: INSULIN HUMAN REGULAR 1,000 UNITS/10 ML VIAL SQ PRN (16:00)
[2017-06-12] MEDS ORDERED: POVIDONE IODINE 5% (ANTISEPSIS KIT) 4 APPLICATIONS EACH NARE PRN (16:00)
[2017-06-12] MEDS ORDERED: LACTATED RINGER'S 1000 ML IV PRN (16:00)
[2017-06-12] MEDS ORDERED: ENOXAPARIN SODIUM 30 MG/0.3 ML SYRINGE SQ SCH (17:30)
--- NOTE | 2017-06-12 18:18 | PD.OP ---
Operative Report Date of Surgery: Jun 12, 2017 Preoperative Diagnosis: symptomatic incarcerated supraumbilical ventral hernia, [facility] Postoperative Diagnosis: same Procedure: open repair incarcerated ventral hernia and [facility] with mesh Anesthesia: general Surgeon: Leo Villareal Arch Support Maker(s): jose Operation and Findings: incarcerated omentum, healthy. reduced. Primary hernia defects 2.5 cm each. Primarily approximated and reinforced with mesh onlay. EBL 5 ml. Leo Villareal MD Jun 12, 2017 18:18
[2017-06-12] MEDS ORDERED: MIDAZOLAM HCL 2 MG/2 ML VIAL ONE (18:20)
[2017-06-12] MEDS ORDERED: MORPHINE SULFATE 4 MG/ML INJ ONE (18:20)
[2017-06-12] MEDS ORDERED: NORC5TAB PO (18:22)
[2017-06-12] MEDS ORDERED: Post-op Orders (for Pharmacy) XX ONE (18:30)
[2017-06-12] MEDS ORDERED: KETOROLAC TROMETHAMINE 30 MG/ML (IVP) VIAL IV PUSH PRN (18:30)
[2017-06-12] MEDS ORDERED: ACETAMINOPHEN/HYDROcodone 325 MG/5 MG TAB PO PRN ×2 (18:30)
[2017-06-12] MEDS: LACTATED RINGER'S 1000 ML INJ 1,000 ML IV SCH (19:00)
[2017-06-12 20:00] VITALS: BP 129/81; PULSE 54; RESP 16; TEMP 96.5; O2SAT 96
--- NOTE | 2017-06-12 21:02 | MP ---
cc: TETE MORATAYA MD, DANIEL M.D. DATE OF SURGERY 06/12/17 PREOPERATIVE DIAGNOSIS Symptomatic incarcerated supraumbilical ventral hernia and umbilical hernia. POSTOPERATIVE DIAGNOSES Symptomatic incarcerated supraumbilical ventral hernia and umbilical hernia. PROCEDURE Open repair incarcerated ventral supraumbilical hernia and umbilical hernia with mesh. SURGEON Dr. Hugo Morataya ANESTHESIA General INDICATIONS This is a pleasant 51-year-old woman who had a supraumbilical lump that she thought was something besides a hernia. A couple of days ago, she experienced a GI virus, had diarrhea, nausea and emesis. With the nausea and emesis, the lump increased in size and became painful. Workup demonstrated incarcerated omental fat and a supraumbilical ventral hernia. She also had an adjacent umbilical hernia with preperitoneal fat. Recommendations were made for repair. The patient wished to proceed. INTRAOPERATIVE FINDINGS Incarcerated healthy omentum reduced into the peritoneal cavity. Umbilical and supraumbilical ventral hernia defects about 2.5 cm each in size. There were primarily approximated and reinforced with mesh onlay. Estimated blood loss less than five mL PROCEDURE IN DETAIL The patient identified as Himanshu Ruth, taken to the operating room and placed in supine position. Sequential compression devices were placed on bilateral lower extremities. Following induction of adequate general endotracheal anesthesia, the patient's abdomen was prepped and draped in usual sterile fashion with Betadine. A time-out procedure was performed. Following completion of time-out procedure to everyone's satisfaction within the room, proposed supraumbilical midline incision overlying the palpable mass was made with a marking pen and infiltrated with local anesthetic. Local anesthetic was placed generously around the area of proposed dissection including the umbilicus. The incision was carried out with scalpel and hemostasis controlled with cautery. Dissection continued posteriorly until the herniated incarcerated fat was from the surrounding subcutaneous fatty tissue down to the fascial defect. Its adherence to the edge of the fascial defect was released and it was able to be reduced in its entirety. Attention was then turned to releasing the umbilical skin from the underlying herniated preperitoneal fatty tissue at the umbilical hernia defect. This were performed using sharp dissection using scissors. This was successfully performed and fascia was cleared circumferentially around the two hernia defects. The hernia defects were closed with multiple interrupted inverted 0 Prolene sutures. The 6 x 8 cm piece of atrium Prolite mesh was cut from a 3 x 6 inch piece placed in the onlay position, held in place with interrupted 2-0 Vicryl sutures. Sutures were placed at 12 and 6 o'clock position and three sutures on each side, making the mesh taut in the onlay position. Irrigation prior to and after placement of the mesh was performed. There was no evidence of bleeding. The umbilicus was reformed with two interrupted 2-0 Vicryl sutures into its normal inward projection. 2-0 Vicryl was placed to approximate the subcutaneous fatty tissue at the deep level and 3-0 Vicryl at the superficial level and skin approximated with running 4-0 Monocryl subcuticular suture. Dressings were applied with Mastisol 1/2 inch brown Steri-Strips, gauze and a large Tegaderm. An abdominal binder was placed. The patient tolerated the procedures without apparent complication. Sponge, needle and instrument counts were correct at the end of the case. MD JONATHAN Lynch/ /6:00 PM /8:38 PM
--- NOTE | 2017-06-12 22:44 | EKG ---
Date Performed: 06/12/2017 Time Performed: 16:18:34 PTAGE: 51 years EKG: SINUS BRADYCARDIA BORDERLINE ECG PREVIOUS TRACING : 06/11/2017 23.53 Compared to the previous tracing, rate has decreased DOCTOR: Sarthak Ansari Interpretating Date/Time 06/12/2017 22:42:54
[2017-06-13] VITALS: BP 144/93; PULSE 51; RESP 18; TEMP 96.2; O2SAT 97
[2017-06-13] MEDS: LACTATED RINGER'S 1000 ML INJ 1,000 ML IV SCH (06:17)
[2017-06-13 08:00] VITALS: BP 150/85; PULSE 50; RESP 16; TEMP 96.1; O2SAT 100
[2017-06-13 08:28] LABS: AUTOMATED NEUTROPHIL # 5.9 TH/MM3 (1.8-7.7); BASOPHIL % 0.1 % (0.0-2.0); HEMATOCRIT 38.6 % (35.0-46.0); LYMPH % 9.4 % (9.0-44.0); LYMPHOCYTE # 0.6 TH/MM3 (1.0-4.8); MEAN CELL VOLUME 87.6 FL (80.0-100.0); MEAN CORPUSCULAR HEMOGLOBIN 29.4 PG (27.0-34.0); MEAN CORPUSCULAR HGB CONC 33.5 % (32.0-36.0); MEAN PLATELET VOLUME 8.7 FL (7.0-11.0); MONO % 2.3 % (0.0-8.0); MONOCYTE # 0.2 TH/MM3 (0-0.9); NEUT % 88.2 % (16.0-70.0); PLATELET COUNT 213 TH/MM3 (150-450); RED BLOOD COUNT 4.41 MIL/MM3 (4.00-5.30); RED CELL DISTRIBUTION WIDTH 14.6 % (11.6-17.2); WHITE BLOOD COUNT 6.7 TH/MM3 (4.0-11.0)
[2017-06-13 08:42] LABS: ALBUMIN 3.2 GM/DL (3.4-5.0); AST (GOT) 12 U/L (15-37); BICARBONATE 21.4 MEQ/L (21.0-32.0); BLOOD UREA NITROGEN 7 MG/DL (7-18); CALCIUM 8.5 MG/DL (8.5-10.1); CHLORIDE 105 MEQ/L (98-107); CREATININE 0.92 MG/DL (0.50-1.00); GLOMERULAR FILTRATION RATE 78 ML/MIN (>89); GLUCOSE,RANDOM 99 MG/DL (74-106); SODIUM (NA) 136 MEQ/L (136-145)
[2017-06-13 08:44] LABS: ALT (GPT) 13 U/L (10-53)
[2017-06-13 08:45] LABS: ALKALINE PHOSPHATASE 72 U/L (45-117); TOTAL BILIRUBIN ADULT 0.9 MG/DL (0.2-1.0); TOTAL PROTEIN 7.4 GM/DL (6.4-8.2)
--- NOTE | 2017-06-13 08:47 | HHI.PR ---
Subjective Remarks Patient seen and examined this morning. Vitals are stable and afebrile. Some abdominal pain, but improved from last night. Passing gas, tolerating PO, no BM yet. Objective Vital Signs Date Time Temp Pulse Resp B/P (MAP) Pulse Ox O2 Delivery O2 Flow Rate FiO2 06/13/17 00:00 96.2 51 18 144/93 (110) 97 06/12/17 22:00 21 06/12/17 20:00 96.5 54 16 129/81 (97) 96 06/12/17 18:45 54 13 121/82 (95) 100 Nasal Cannula 2 06/12/17 18:30 53 14 116/83 (94) 100 Nasal Cannula 2 06/12/17 18:18 98.0 65 14 134/80 (98) 100 Nasal Cannula 2 06/12/17 15:55 97.6 50 24 161/105 (123) 99 06/12/17 12:30 98.0 50 18 145/101 (116) 98 I/O 06/12/17 06/12/17 06/12/17 06/13/17 06/13/17 06/13/17 07:00 15:00 23:00 07:00 15:00 23:00 Intake Total 1000 ml 1000 ml 1720 ml Output Total 5 ml Balance 1000 ml 995 ml 1720 ml Intake Oral 720 ml IV Total 1000 ml 1000 ml 1000 ml Output Estimated Blood Loss 5 ml # Voids 1 8 3 # Bowel Movements 1 Result Diagram: 06/13/17 0623 06/12/17 193 Imaging Last Impressions Abdomen/Pelvis CT 06/11/172037 Signed Impressions: Service Date/Time: Sunday, June 11, 2017 20:54 - CONCLUSION: 1. Anterior abdominal wall hernia containing mesenteric fat. This is more prominent than on the prior study there is now increased density in the herniated fat with possible small fluid collection. Likely represents inflammatory change. There is no definite bowel hernia. 2. Unremarkable bowel gas pattern with no evidence of obstruction. Miguel Lutz MD Chest X-Ray 06/11/172033 Signed Impressions: Service Date/Time: Sunday, June 11, 2017 21:15 - CONCLUSION: No acute disease. Miguel Lutz MD Other Results GENERAL: sitting up in bed, nad SKIN: Warm and dry. HEAD: Normocephalic. EYES: No scleral icterus. No injection or drainage. NECK: Supple, trachea midline. No JVD or lymphadenopathy. CARDIOVASCULAR: Regular rate and rhythm without murmurs, gallops, or rubs. RESPIRATORY: Breath sounds equal bilaterally. No accessory muscle use. GASTROINTESTINAL: Abdomen soft, tender, abdominal binder in place. MUSCULOSKELETAL: No cyanosis, or edema. No calf tenderness A/P Problem List: (1) BJORN (acute kidney injury) ICD Code: N17.9 - Acute kidney failure, unspecified (2) HTN (hypertension) ICD Code: I10 - Essential (primary) hypertension (3) Ventral hernia ICD Code: K43.9 - Ventral hernia without obstruction or gangrene (4) Tobacco abuse ICD Code: Z72.0 - Tobacco use Assessment and Plan 51-year-old female patient with hypertension, lupus, throat cancer, meningioma, and tobacco abuse being treated for: Symptomatic incarcerated supraumbilical Ventral hernia - Presented with intractable abdominal pain, see imaging above - Seen and evaluated by , status post repair 06/12 Hypertension - Continue home meds BJORN - Improved with IV hydration DVT prophylaxis: Bilateral SCDs Electrolytes: currently within normal limits Discharge Planning CC pending surgical clearance, medically stable. Lisbet Lincoln MD Jun 13, 2017 08:47
[2017-06-13] MEDS: DOCUSATE SODIUM 50 MG/SENNA 8.6 MG TAB PO SCH (09:00)
[2017-06-13] MEDS: SODIUM CHLORIDE 0.9% FLUSH 10 ML FLUSH IV FLUSH SCH (09:00)
[2017-06-13] MEDS: PROPRANOLOL HCL 40 MG TAB PO SCH (09:05)
[2017-06-13] MEDS: TOPIRAMATE 25 MG TAB PO SCH (09:06)
--- NOTE | 2017-06-13 09:33 | HHI.PR ---
Subjective Subjective Notes feels better, eating breakfast, wants to go home Objective Vitals/I&O Vital Signs Date Time Temp Pulse Resp B/P (MAP) Pulse Ox O2 Delivery O2 Flow Rate FiO2 06/13/17 08:00 96.1 50 16 150/85 (106) 100 06/12/17 18:45 Nasal Cannula 2 Labs Laboratory Tests Test 06/12/17 19:38 06/13/17 06:23 06/13/17 06:25 Potassium Level 3.8 3.7 White Blood Count 6.7 Red Blood Count 4.41 Hemoglobin 13.0 Hematocrit 38.6 Mean Corpuscular Volume 87.6 Mean Corpuscular Hemoglobin 29.4 Mean Corpuscular Hemoglobin Concent 33.5 Red Cell Distribution Width 14.6 Platelet Count 213 Mean Platelet Volume 8.7 Neutrophils (%) (Auto) 88.2 Lymphocytes (%) (Auto) 9.4 Monocytes (%) (Auto) 2.3 Eosinophils (%) (Auto) 0.0 Basophils (%) (Auto) 0.1 Neutrophils # (Auto) 5.9 Lymphocytes # (Auto) 0.6 Monocytes # (Auto) 0.2 Eosinophils # (Auto) 0.0 Basophils # (Auto) 0.0 CBC Comment DIFF FINAL Differential Comment Blood Urea Nitrogen 7 Creatinine 0.92 Random Glucose 99 Total Protein 7.4 Albumin 3.2 Calcium Level 8.5 Alkaline Phosphatase 72 Aspartate Amino Transf (AST/SGOT) 12 Alanine Aminotransferase (ALT/SGPT) 13 Total Bilirubin 0.9 Sodium Level 136 Chloride Level 105 Carbon Dioxide Level 21.4 Anion Gap 10 Estimat Glomerular Filtration Rate 78 Abdomen: Non-distended, Post-op tenderness, BS normal Wound Wound : Wound Location: Abdomen Appearance: Clean & Dry Dressing: Dry A/P Assessment and Plan s/p repair incarcerated hernia (omentum) ok to mo home, dr sparrow 1 week [phone] Cem Bravo MD Jun 13, 2017 09:33
--- NOTE | 2017-06-13 12:41 | EKG ---
Date Performed: 06/11/2017 Time Performed: 23:53:30 PTAGE: 51 years EKG: Sinus rhythm WITH OCCASIONAL SUPRAVENTRICULAR PREMATURE COMPLEXES NONSPECIFIC T-WAVE ABNORMALITY Compared to prio r tracing no significant change BORDERLINE ECG PREVIOUS TRACING : 03/23/17 @ 0726 DOCTOR: Yo Santos Interpretating Date/Time 06/13/2017 12:39:39
== END 2017-06-13 11:12 | disposition home or self-care (01) | DRG 354 ==
LOC: NEPC 20:12 → NEDA 23:22 → NEPHCDU 06-12 01:31 → OBSVTOIN 06-12 13:57 → N07B 06-12 16:51
PROVIDERS: ADMIT Family Medicine; ATTEND Family Medicine
PROC: 0WUF0JZ Supplement Abdominal Wall with Synthetic Substitute, Open Approach (ICD-10-PCS; principal; 2017-06-12 17:02)
DX: K43.6 Other and unspecified ventral hernia with obstruction, without gangrene (principal); N17.9 Acute kidney failure, unspecified; M32.9 Systemic lupus erythematosus, unspecified; F32.9 Major depressive disorder, single episode, unspecified; J41.0 Simple chronic bronchitis; K21.9 Gastro-esophageal reflux disease without esophagitis; I10 Essential (primary) hypertension; J45.909 Unspecified asthma, uncomplicated; K42.9 Umbilical hernia without obstruction or gangrene; G40.909 Epilepsy, unspecified, not intractable, without status epilepticus; F12.90 Cannabis use, unspecified, uncomplicated; F14.10 Cocaine abuse, uncomplicated; F17.200 Nicotine dependence, unspecified, uncomplicated; Z85.819 Personal history of malignant neoplasm of unspecified site of lip, oral cavity, and pharynx; Z86.011 Personal history of benign neoplasm of the brain; Z88.0 Allergy status to penicillin; Z88.2 Allergy status to sulfonamides; Z91.013 Allergy to seafood; Z91.041 Radiographic dye allergy status; Z92.3 Personal history of irradiation
CPT/HCPCS: 71010; 74176; 80053; 81001; 82550; 83690; 83735; 83880; 84132; 84484; 85025; 85610; 85730; 93005; 96361; 96374; 96375; C1781; G0378; J1100; J1885; J2250; J2270; J2405; J2710; J3010; J3370; J7030; J7050; J7120

== ENCOUNTER 2017-06-30 15:27 | Emergency (ER) | payer SELFPAY ==
[~2017-06-30] VITALS: Ht 167.6 cm; Wt 80.9 kg
[~2017-06-30 15:27] MED LIST changes: +NORC5TAB PO
[2017-06-30 15:28] VITALS: BP 134/93; PULSE 69; RESP 16; TEMP 97.9; O2SAT 99
--- NOTE | 2017-06-30 16:19 | RADRPT ---
EXAM DATE/TIME: 06/30/2017 16:07 [facility] COMPARISON: CHEST PA & LAT, March 27, 2016, 0:55. INDICATIONS : Cough and congestion. MEDICAL HISTORY : Hypertension. Smoker. Asthma. SURGICAL HISTORY : None. ENCOUNTER: Initial ACUITY: 2 weeks PAIN SCORE: 0/10 LOCATION: Bilateral chest FINDINGS: PA and lateral views of the chest demonstrate the lungs to be symmetrically aerated without evidence of mass, infiltrate or effusion. The cardiomediastinal contours are unremarkable. Osseous structure s are intact. CONCLUSION: Normal examination. Rolf Mayer MD on June 30, 2017 at 16:15 Board Certified Radiologist. This report was verified electronically.
[2017-06-30] MEDS ORDERED: AZIT500T2 PO (17:34)
--- NOTE | 2017-06-30 17:35 | PD ---
HPI Chief Complaint: Cold / Flu Symptoms Time Seen by Provider: 17:32 Travel History International Travel<30 days: No Contact w/Intl Traveler<30days: No Traveled to known affect area: No History of Present Illness HPI 51-year-old female presents to the emergency Department with complaint of nasal congestion, cough, throat irritation 2 weeks. Denies chest pain, tightness, shortness of breath, wheezing. Reports subjective fevers. Denies vomiting. Has been taking Tylenol and TheraFlu for symptom management. No others with similar symptoms. Symptoms are mild in severity. No known aggravating or relieving factors. History of asthma. Multiple allergies as listed on the chart. Has no other medical complaints. No other modifying factors or associated signs and symptoms. PFSH Past Medical History Asthma: Yes (diagnosed 15 years ago- does not have rescue inhaler.) Blood Disorders: No Anxiety: No Depression: Yes Heart Rhythm Problems: No Cancer: Yes (throat cancer 1985) Cardiac Catheterization: No Cardiovascular Problems: Yes (HTN) High Cholesterol: No Chemotherapy: No Chest Pain: No Congestive Heart Failure: No COPD: No Diabetes: No Diminished Hearing: No Endocrine: No GERD: Yes Genitourinary: No Headaches: Yes Hypertension: Yes Immune Disorder: Yes (lupus) Musculoskeletal: No Neurologic: No Psychiatric: No Reproductive: No Respiratory: Yes Immunizations Current: Yes Migraines: Yes Radiation Therapy: Yes Sleep Apnea: No Thyroid Disease: No Menopausal: No : 4 Para: 3 Miscarriage: 1 Ovarian Cysts: Yes Tubal Ligation: Yes Past Surgical History Abdominal Surgery: Yes (TUMORS REMOVED FROM STOMACH) AICD: No Cardiac Surgery: No Section: Yes Coronary Artery Bypass Graft: No Ear Surgery: No Endocrine Surgery: No Eye Surgery: No Genitourinary Surgery: No Gynecologic Surgery: Yes (ovary cyst) Joint Replacement: No Neurologic Surgery: Yes (BENIGN BRAIN TUMOR REMOVED) Oral Surgery: Yes (BIOPSY OF THROAT) Pacemaker: No Thoracic Surgery: No Other Surgery: Yes (UTERINE TUMOR REMOVED/ 35 yrs ago throat cancer/ brain tumor 11 yrs ago) Social History Alcohol Use: Yes (OCCASSIONALLY) Tobacco Use: Yes (1/2 PPD) Substance Use: Yes (marijuana thurs-sun each week) Allergies-Medications (Allergen,Severity, Reaction): Coded Allergies: Fish Containing Products (Verified Allergy, Severe, Anaphylaxis, 06/12/17) MRI PRECAUTION (Verified Allergy, Severe, ALLERGY TO MRI CONTRAST MEDIUM, 06/11/17) Sulfa (Sulfonamide Antibiotics) (Verified Allergy, Severe, SWELLING, 06/11) diatrizoate meglumine (Verified Allergy, Severe, SWELLS UP, 06/11/17) gadobenic acid (Verified Allergy, Severe, SWELLS UP, 06/11/17) gadodiamide (Verified Allergy, Severe, SWELLS UP, 06/11/17) gadoteridol (Verified Allergy, Severe, SWELLS UP, 06/11/17) iodixanol (Verified Allergy, Severe, SWELLS UP, 06/11/17) iohexol (Verified Allergy, Severe, SWELLS UP, 06/11/17) penicillin G (Verified Allergy, Severe, SWELLS UP, 06/11/17) Reported Meds & Prescriptions Reported Meds & Active Scripts Active Tessalon Perles (Benzonatate) 100 Mg Cap 100 Mg PO TID PRN 3 Days Azithromycin 500 Mg Tab 500 Mg PO DAILY Monhegan (Hydrocodone-Acetaminophen) 5 Mg-325 Mg Tab 1 Tab PO Q4H PRN Hydrochlorothiazide 25 Mg Tab 25 Mg PO BID Lisinopril 20 Mg Tab 20 Mg PO BID Propranolol (Propranolol HCl) 40 Mg Tab 40 Mg PO BID Topiramate 50 Mg Tab 50 Mg PO BID Review of Systems Except as stated in HPI: all other systems reviewed are Neg Physical Exam Narrative GENERAL: Well-nourished, well-developed black female patient, in no acute distress; afebrile, nontoxic-appearing SKIN: Warm and dry. No rash. HEAD: Atraumatic. Normocephalic. EYES: Pupils equal and round. No scleral icterus. No injection or drainage. ENT: Mucosa pink and moist. No erythema or exudates. No uvular edema. No uvular , palatal, or tonsillar deviation. Airway patent. EARS: Bilateral pinnae and external canals appear within normal limits. Bilateral tympanic membranes without erythema, dullness or perforation. NECK: Trachea midline. No lymphadenopathy. CARDIOVASCULAR: Regular rate and rhythm. No murmur appreciated. RESPIRATORY: No accessory muscle use. Clear to auscultation. Breath sounds equal bilaterally. No retractions or tachypnea. GASTROINTESTINAL: Abdomen soft, non-tender, nondistended. Hepatic and splenic margins not palpable. Bowel sounds are active 4 quadrants. MUSCULOSKELETAL: No obvious deformities. No clubbing. No cyanosis. No edema. NEUROLOGICAL: Awake and alert. Oriented 3. No obvious cranial nerve deficits. Motor grossly within normal limits. Normal speech. Moves all extremities. 5/5 strength to all extremities. PSYCHIATRIC: Appropriate mood and affect; insight and judgment normal. Data Data Last Documented VS Vital Signs Date Time Temp Pulse Resp B/P (MAP) Pulse Ox O2 Delivery O2 Flow Rate FiO2 06/30/17 15:28 97.9 69 16 134/93 (107) 99 Orders Orders Chest, Pa & Lat (06/30/17 ) Ed Discharge Order (06/30/17 17:38) [facility] Medical Decision Making Medical Screen Exam Complete: Yes Emergency Medical Condition: Yes Medical Record Reviewed: Yes Differential Diagnosis Pneumonia, upper respiratory infection, bronchitis Narrative Course 51-year-old female, with history of asthma, physical examination consistent with upper respiratory infection. Patient is afebrile and nontoxic-appearing. Reports subjective fevers. Denies vomiting. Lungs are clear and equal throughout. The patient denies chest tightness, shortness of breath, wheezing. I'll treat the patient with antibiotics secondary to length of illness. Azithromycin and Tessalon Perles prescribed for home. Instructed patient to follow up with primary care provider. Patient verbalizes understanding and agreement with treatment plan. Patient is medically cleared and stable for discharge. Discussed reasons to return to the emergency department. Patient agrees with treatment plan. The patients vital signs are stable and the patient is stable for outpatient follow-up and treatment. Patient discharged home, stable and in no acute distress. Diagnosis Primary Impression: Upper respiratory infection Qualified Codes: J06.9 - Acute upper respiratory infection, unspecified Referrals: [facility] Primary Care Physician Patient Instructions: General Instructions, Upper Respiratory Infection (ED) Additional Instructions: Antibiotics as prescribed and complete full course Ibuprofen or Tylenol as instructed and as needed for fever/pain Fwup-syt-rborlwd cough and cold medications as directed and as needed for symptom management Get plenty of sleep/rest Drink plenty of fluids to prevent dehydration; popsicles and Gatorade Use an air humidifier/turn off ceiling fans Follow-up with primary care provider Return immediately to the emergency department with worsening of symptoms Med/Other Pt SpecificInfo: Prescription(s) given Scripts Benzonatate (Tessalon Perles) 100 Mg Cap 100 MG PO TID Y for COUGH for 3 Days, CAP 0 Refills Prov: Ijeoma Banerjee 06/30/17 Azithromycin (Azithromycin) 500 Mg Tab 500 MG PO DAILY for Infection, #5 TAB 0 Refills Prov: Ijeoma Banerjee 06/30/17 Disposition: 01 DISCHARGE HOME Condition: Stable Ijeoma Banerjee Jun 30, 2017 17:35
[2017-06-30] MEDS ORDERED: BENZ100 PO (17:38)
== END 2017-06-30 17:57 | disposition home or self-care (01) ==
LOC: NEPK 15:27
DX: J06.9 Acute upper respiratory infection, unspecified (principal); J45.909 Unspecified asthma, uncomplicated; I10 Essential (primary) hypertension; K21.9 Gastro-esophageal reflux disease without esophagitis; M32.9 Systemic lupus erythematosus, unspecified; F32.9 Major depressive disorder, single episode, unspecified; F17.200 Nicotine dependence, unspecified, uncomplicated; Z79.899 Other long term (current) drug therapy; Z88.0 Allergy status to penicillin
CPT/HCPCS: 71046; 99284

== ENCOUNTER 2018-03-28 00:02 | Observation (INO) ==
[2018-03-28] MEDS ORDERED: amLODIPine 10 MG Tablet PO ONE (00:46)
[2018-03-28] MEDS ORDERED: hydroCHLOROthiazide 25 MG Tablet PO ONE (00:46)
[2018-03-28] MEDS ORDERED: guaiFENesin/Codeine Syrup 200 MG/20 MG 10 ML UDC PO ONE (00:47)
--- NOTE | 2018-03-28 01:04 | ED ---
HPI General Chief Complaint: Chest Pain Stated Complaint: Swelling is the throat Time Seen by Provider: 03/28/18 00:31 Source: patient Mode of arrival: ambulatory Limitations: no limitations History of Present Illness HPI Narrative: Patient is a 52-year-old female complaining of hoarse throat swelling for the last few days progressively getting worse. She says she does not feel nasal congestion she just feels her throat is hurting her and is feels like it is getting difficult to swallow and it is progressively increasing she is not taking any medication for this she has not seen another doctor for this she is able to eat and swallow but she feels like it is progressively getting more pressure in her throat and you can hear a rattle a hoarseness to her throat when she speaks during the HPI and ROS. She has no trauma no allergic reaction she has no history of allergies. She also has very hypertensive at triage her blood pressure is 235/115. She says she supposed be on antihypertensive meds but she has run out of money and her insurance and she does not have insurance and she cannot afford the meds for her hypertension I give her Norvasc 10mg and hydrochlorothiazide 25mg as we begin to diagnose her throat issues Related Data Previous Rx's Medication Instructions Recorded ibuprofen 800 mg PO Q8H PRN #30 tab 02/11/18 amlodipine [Norvasc] 10 mg PO DAILY #30 tab 03/30/18 clindamycin HCl [Cleocin HCl] 450 mg PO Q6HR #28 cap 03/30/18 prednisone 10 mg PO DAILY #10 tab 03/30/18 Allergies Allergy/AdvReac Type Severity Reaction Status Date / Time diatrizoate meglumine Allergy Severe SWELLS UP Verified 02/11/18 14:17 Fish Containing Products Allergy Severe Anaphylaxis Verified 02/11/18 14:17 gadobenic acid Allergy Severe SWELLS UP Verified 02/11/18 14:17 gadodiamide Allergy Severe SWELLS UP Verified 02/11/18 14:17 gadoteridol Allergy Severe SWELLS UP Verified 02/11/18 14:17 iodixanol Allergy Severe SWELLS UP Verified 02/11/18 14:17 iohexol Allergy Severe SWELLS UP Verified 02/11/18 14:17 penicillin G Allergy Severe SWELLS UP Verified 02/11/18 14:17 Sulfa (Sulfonamide Allergy Severe SWELLING Verified 02/11/18 14:17 Antibiotics) MRI PRECAUTION Allergy Severe ALLERGY TO Uncoded 06/11/17 20:23 MRI CONTRAST MEDIUM Review of Systems ROS: all other systems reviewed are negative [facility] Family History Family History Other Family history non-contributory Social History Social History Substance History: Active Abuse Second Hand Smoke Exposure: Yes Smoking Status: Current every day smoker Tobacco Type: Cigarettes How Often Do You Have a Drink Containing Alcohol: Never Recent Travel in [facility] within the Last 8 Weeks: No Recent Out of Country Travel within the Last 8 Weeks: No Exam Narrative Exam Narrative: GENERAL: pt has haorse throat rattling voice no drooling no resp distress SKIN: Warm and dry. HEAD: Atraumatic. Normocephalic. EYES: Pupils equal and round. No scleral icterus. No injection or drainage. ENT: No nasal bleeding or discharge. Mucous membranes pink and moist. NECK: Trachea midline. No JVD. ascultation at neck no stridor heard CARDIOVASCULAR: Regular rate and rhythm. RESPIRATORY: No accessory muscle use. Clear to auscultation. Breath sounds equal bilaterally. GASTROINTESTINAL: Abdomen soft, non-tender, nondistended. Hepatic and splenic margins not palpable. MUSCULOSKELETAL: Extremities without clubbing, cyanosis, or edema. No obvious deformities. NEUROLOGICAL: Awake and alert. No obvious cranial nerve deficits. Motor grossly within normal limits. Five out of 5 muscle strength in the arms and legs. Normal speech. PSYCHIATRIC: Appropriate mood and affect; insight and judgment normal. Course Initial Documented Vital Signs Temperature 98.3 F 03/28/18 00:10 Pulse Rate 98 H 03/28/18 00:10 Respiratory Rate 24 03/28/18 00:10 Blood Pressure 208/126 H 03/28/18 00:10 Pulse Oximetry 98 03/28/18 00:10 Last Documented Vital Signs Temperature 97.9 F 03/30/18 09:12 Pulse Rate 58 L 03/30/18 09:12 Respiratory Rate 18 03/30/18 09:12 Blood Pressure 124/91 H 03/30/18 09:12 Pulse Oximetry 100 03/30/18 09:12 Critical Care Time Critical Care Time: Yes Total Critical Care Time: 30 Attestation: airway minitor and management of infection in airway ICU admit to continue close airway monitoring and management no intubation needed at this time , multiple re-eval in ER to assess stablilit[facility] of [facility] Medical Decision Making MDM Narrative Medical decision making narrative: soft tissue neck reveals narrowing airway and CT reveals effusion trecheitis like picture pt given Clindamycin IV and close monitor of airway no intubation indicated at this time. admitted to icu Medical Screen Exam Complete: Yes Emergency Medical Condition: Yes Differential Diagnosis Differential Diagnosis: strep throat vs URI vs epiglottitis vs tracheitis bactrial vs allergic reaction airway obstruction Lab Data Result diagrams: 03/29/18 06:05 03/29/18 06:05 Lab Results 03/28/18 03/28/18 03/29/18 Range/Units 03:30 04:40 06:05 WBC 6.3 5.1 (4.0-11.0) th/mm3 RBC 5.37 H 5.07 (4.00-5.30) mil/mm3 Hgb 15.5 H 14.4 (11.6-15.3) gm/dL Hct 45.3 42.6 (35.0-46.0) % MCV 84.4 84.0 (80.0-100.0) fL MCH 29.0 28.4 (27.0-34.0) pg MCHC 34.3 33.8 (32.0-36.0) % RDW 15.9 15.5 (11.6-17.2) % Plt Count 168 169 (150-450) th/mm3 MPV 8.4 8.5 (7.0-11.0) fL Prelim Diff (Auto) Slide review pending Neut % (Auto) 64.9 79.4 H (16.0-70.0) % Lymph % (Auto) 30.8 15.3 (9.0-44.0) % [place] % (Auto) 3.2 5.2 (0.0-8.0) % Eos % (Auto) 0.8 0.0 (0.0-4.0) % Baso % (Auto) 0.3 0.1 (0.0-2.0) % Neut # (Auto) 4.1 4.0 (1.8-7.7) th/mm3 Lymph # (Auto) 1.9 0.8 L (1.0-4.8) th/mm3 [place] # (Auto) 0.2 0.3 (0.0-0.9) th/mm3 Eos # (Auto) 0.0 0.0 (0.0-0.4) th/mm3 Baso # (Auto) 0.0 0.0 (0.0-0.2) th/mm3 WBC Differential . . Diff Scan Auto diff confirmed Differential Comment . Auto diff final Platelet Estimate Normal (Normal) Platelet Morphology Enlarged H (Normal) Sodium 137 (136-145) meq/L Potassium 3.5 (3.5-5.1) meq/L Chloride 105 (98-107) meq/L Carbon Dioxide 24.3 (21.0-32.0) meq/L Anion Gap 8 (5-15) meq/L BUN 12 (7-18) mg/dL Creatinine 0.85 (0.50-1.00) mg/dL Estimated GFR 85 L (>89) mL/min Random Glucose 109 H (74-106) mg/dL Calcium 8.5 (8.5-10.1) mg/dL Total Bilirubin 1.4 H (0.2-1.0) mg/dL AST 13 L (15-37) U/L ALT 15 (10-53) U/L Alkaline Phosphatase 81 (45-117) U/L Total Protein 9.1 H (6.4-8.2) g/dL Albumin 3.4 (3.4-5.0) g/dL 03/29/18 Range/Units 06:05 WBC (4.0-11.0) th/mm3 RBC (4.00-5.30) mil/mm3 Hgb (11.6-15.3) gm/dL Hct (35.0-46.0) % MCV (80.0-100.0) fL MCH (27.0-34.0) pg MCHC (32.0-36.0) % RDW (11.6-17.2) % Plt Count (150-450) th/mm3 MPV (7.0-11.0) fL Prelim Diff (Auto) Neut % (Auto) (16.0-70.0) % Lymph % (Auto) (9.0-44.0) % [place] % (Auto) (0.0-8.0) % Eos % (Auto) (0.0-4.0) % Baso % (Auto) (0.0-2.0) % Neut # (Auto) (1.8-7.7) th/mm3 Lymph # (Auto) (1.0-4.8) th/mm3 [place] # (Auto) (0.0-0.9) th/mm3 Eos # (Auto) (0.0-0.4) th/mm3 Baso # (Auto) (0.0-0.2) th/mm3 WBC Differential Diff Scan Differential Comment Platelet Estimate (Normal) Platelet Morphology (Normal) Sodium 137 (136-145) meq/L Potassium 3.9 (3.5-5.1) meq/L Chloride 102 (98-107) meq/L Carbon Dioxide 25.4 (21.0-32.0) meq/L Anion Gap 10 (5-15) meq/L BUN 16 (7-18) mg/dL Creatinine 0.92 (0.50-1.00) mg/dL Estimated GFR 78 L (>89) mL/min Random Glucose 131 H (74-106) mg/dL Calcium 9.6 D (8.5-10.1) mg/dL Total Bilirubin (0.2-1.0) mg/dL AST (15-37) U/L ALT (10-53) U/L Alkaline Phosphatase (45-117) U/L Total Protein (6.4-8.2) g/dL Albumin (3.4-5.0) g/dL Imaging Data Radiologist's impression: Soft Tissue Neck X-Ray 03/28/18 00:48 CONCLUSION: Widening of the retropharyngeal space. Abscess is not excluded. This can be further evaluated by contrast-enhanced CT. Soft Tissue Neck CT 03/28/18 03:29 CONCLUSION: 1. Retropharyngeal effusion without evidence of discrete abscess. Diffuse bilateral adenopathy. Discharge Plan Discharge Disposition Patient Disposition: 30 Still Patient Discharge Condition Condition: Good Discharge Order Discharge Orders: Discharge Order (Routine); Ordered 03/30/18 Ordered By: Marcella Coleman Physicians Team ED Provider: Lam Ponce Primary Care Provider: Primary Care Gideon,Darcy Attending Provider: Marcella Coleman Other Providers: Dimitrios Taylor Status ED Status: Left Department Discharge Information Discharge Date/Time: 03/28/18 06:50
--- NOTE | 2018-03-28 02:00 | XR ---
EXAM DATE: 03/28/2018 12:48 AM EDT AGE/SEX: 52 years / Female INDICATIONS: Sore throat and swelling. CLINICAL DATA: This is the patient's initial encounter. Patient reports that signs and symptoms have been present for 2 days and indicates a pain score of 9/10. MEDICAL/SURGICAL HISTORY: Hypertension. Asthma. Lupus. Throat cancer. Smoker. None. COMPARISON: No prior exams available for comparison. FINDINGS: There is widening of the prevertebral space. Retropharyngeal mass or abscess is not excluded. Contras t-enhanced CT is recommended. The epiglottis and subglottic airway appear normal. Degenerative change s present at the cervical spine. CONCLUSION: Widening of the retropharyngeal space. Abscess is not excluded. This can be further evaluated by cont rast-enhanced CT. Electronically signed by: Leo Couch MD 03/28/2018 1:59 AM EDT
[2018-03-28] MEDS ORDERED: Sod Chloride 0.9% Inj 1,000 ML IV.SIG ONE (03:30)
[2018-03-28] MEDS: Clindamycin 600 mg/NS Premix 600 MG/50 ML PIGGYBACK IV.SIG SCH ×3 (03:40→19:28)
[2018-03-28 03:55] LABS: Baso % (Auto) 0.3 % (0.0-2.0); Eos % (Auto) 0.8 % (0.0-4.0); Hematocrit 45.3 % (35.0-46.0); Hemoglobin 15.5 gm/dL (11.6-15.3); Lymph # (Auto) 1.9 th/mm3 (1.0-4.8); Lymph % (Auto) 30.8 % (9.0-44.0); Mean Corpuscular HGB Conc 34.3 % (32.0-36.0); Mean Corpuscular Volume 84.4 fL (80.0-100.0); Mean Platelet Volume 8.4 fL (7.0-11.0); Mono # (Auto) 0.2 th/mm3 (0.0-0.9); Mono % (Auto) 3.2 % (0.0-8.0); Neut # (Auto) 4.1 th/mm3 (1.8-7.7); Neut % (Auto) 64.9 % (16.0-70.0); Platelet Count 168 th/mm3 (150-450); Red Blood Count 5.37 mil/mm3 (4.00-5.30); Red Cell Distribution Width 15.9 % (11.6-17.2); White Blood Count 6.3 th/mm3 (4.0-11.0)
[2018-03-28 04:04] LABS: Alkaline Phosphatase 81 U/L (45-117); Total Protein 9.1 g/dL (6.4-8.2)
[2018-03-28 04:38] LABS: Platelet Estimate Normal (Normal)
--- NOTE | 2018-03-28 05:20 | CT ---
EXAM DATE: 03/28/2018 3:29 AM EDT AGE/SEX: 52 years / Female INDICATIONS: Swelling of throat and hard to breath. History of throat cancer. CLINICAL DATA: This is the patient's initial encounter. Patient reports that signs and symptoms have been present for 3 days and indicates a pain score of 9/10. MEDICAL/SURGICAL HISTORY: Asthma. Hypertension. Lupus. Throat cancer None. RADIATION DOSE: 16.06 CTDI (mGy) COMPARISON: No prior exams available for comparison. TECHNIQUE: Helical acquisition was performed using a multirow detector CT scanner without contrast. Using automated exposure control and adjustment of the mA and/or kV according to patient size, radiat ion dose was kept as low as reasonably achievable to obtain optimal diagnostic quality images. DICOM format image data is available electronically for review and comparison. FINDINGS: Examination of the skull base demonstrates no evidence of deep infiltrating mucosal lesion. The oroph arynx, hypopharynx, glottic and subglottic airway demonstrate no abnormality. There is fluid in the retropharyngeal space from C3 to C6 but this is not loculated as to be expected with abscess. There is diffuse nonspecific adenopathy bilaterally which may be reactive in nature. A pices The thyroid gland demonstrates no abnormality. CONCLUSION: 1. Retropharyngeal effusion without evidence of discrete abscess. Diffuse bilateral adenopathy. Electronically signed by: Leo Couch MD 03/28/2018 5:18 AM EDT
[2018-03-28 05:31] LABS: Albumin 3.4 g/dL (3.4-5.0); Anion Gap 8 meq/L (5-15); Aspartate Aminotransferase 13 U/L (15-37); Blood Urea Nitrogen 12 mg/dL (7-18); Calcium 8.5 mg/dL (8.5-10.1); Carbon Dioxide 24.3 meq/L (21.0-32.0); Chloride 105 meq/L (98-107); Glomerular Filtration Rate 85 mL/min (>89); Glucose,Random 109 mg/dL (74-106); Potassium 3.5 meq/L (3.5-5.1); Sodium 137 meq/L (136-145)
[2018-03-28 05:34] LABS: Alanine Aminotransferase 15 U/L (10-53)
[2018-03-28] MEDS ORDERED: Acetaminophen 325 MG Tablet PO PRN (05:34)
[2018-03-28] MEDS ORDERED: Labetalol HCl Inj 100 MG/20 ML Vial IV.PUSH ONE (06:00)
[2018-03-28] MEDS: amLODIPine 10 MG Tablet PO SCH (08:09)
--- NOTE | 2018-03-28 10:13 | P.HPIM ---
History of Present Illness Primary Care Physician: No Primary Care Physician History of Present Illness: 52 year old female with history of HTN, SLE, remote history of throat cancer in her 30s, and history of meningioma presenting with sore throat and difficulty swallowing. The patient reports she started having a sore throat about four days ago and yesterday it got to the point where she couldn't even swallow. She took Theraflu and Mucinex with no relief. She denies sick contacts. She endorses some chills but denies fever, cough, or rhinorrhea. She reports she feels like her left ear is clogged. She states she feels most of her symptoms on the left side of her throat. She reports it got to the point that she started having difficulty breathing as well. She feels in general her symptoms feel a little better since being in the hospital but she is still having some dysphagia. She had an umbilical hernia repair back in May 2017 and states that her throat was very scarred from intubated to the point where her voice was hoarse up to two months. Of note, the patient reports she is no longer on medications for her HTN or SLE after losing insurance several months ago. She was following with Dr. Cardenas prior to losing insurance. PMH: HTN, SLE, h/o meningioma x 12 years ago, one or two was removed, h/o throat cancer x 30 years ago, treated with chemo and radiation Surgical hx: throat biopsy, ovarian cyst resection, , meningioma excision, ventral hernia repair Family hx: no family history of heart disease or DM Social hx: lives with , denies EtOH, smokes 1/2 PPD, admits to marijuana - Diagnosis (1) Throat pain Review of Systems All other systems reviewed negative except as stated in HPI PMFSH - History History Provided By: Patient - Medical History Medical History: Medical History (Last Reviewed 03/28/18 @ 13:38 by Nilda Nuno MD) History of throat cancer (Acute) Asthma (Acute) Lupus (systemic lupus erythematosus) (Acute) Hypertension (Acute) - Family History Family History: Family History (Last Updated 03/28/18 @ 13:38 by Nilda Nuno MD) Other Family history non-contributory - Social History I have reviewed the patient's Social History: Yes - Tobacco History Second Hand Smoke Exposure: Yes Tobacco Use In Past 30 Days: Yes Smoking Status: Current every day smoker Tobacco Type: Cigarettes - Alcohol History How Often Do You Have a Drink Containing Alcohol: Never - Substance Use History Substance History: Active Abuse - Substance Use Type Marijuana Status: Active Route Used: Inhalation Frequency: Nightly Reason for Use: Calm Down - Travel History Recent Travel in the [place] Within the Last 8 Weeks: No Recent Travel Out of the Country Within the Last 8 Weeks: No - Immunization History Tetanus Immunization: <5 Years Medications and Allergies Active Medications: Active Medications Acetaminophen (Tylenol) 650 mg PO Q4H PRN PRN Reason: Temp > 100.4 Amlodipine Besylate (Norvasc) 10 mg PO DAILY [facility] Last Admin: 03/28/18 08:09 Dose: 10 mg Dexamethasone Sodium Phosphate (Decadron Inj) 4 mg IV.PUSH Q8HR AFTAB Last Admin: 03/28/18 08:09 Dose: 4 mg Clindamycin/Sodium Chloride (Cleocin 600 Mg/Ns Premix) 600 mg in 50 mls @ 100 mls/hr IV.SIG Q8H AFTAB Stop: 03/28/18 19:59 Last Infusion: 03/28/18 05:10 Dose: Infused Ondansetron HCl (Zofran Inj) 4 mg IV.PUSH Q6H PRN PRN Reason: NAUSEA OR VOMITING Allergies Allergy/AdvReac Type Severity Reaction Status Date / Time diatrizoate meglumine Allergy Severe SWELLS UP Verified 02/11/18 14:17 Fish Containing Products Allergy Severe Anaphylaxis Verified 02/11/18 14:17 gadobenic acid Allergy Severe SWELLS UP Verified 02/11/18 14:17 gadodiamide Allergy Severe SWELLS UP Verified 02/11/18 14:17 gadoteridol Allergy Severe SWELLS UP Verified 02/11/18 14:17 iodixanol Allergy Severe SWELLS UP Verified 02/11/18 14:17 iohexol Allergy Severe SWELLS UP Verified 02/11/18 14:17 penicillin G Allergy Severe SWELLS UP Verified 02/11/18 14:17 Sulfa (Sulfonamide Allergy Severe SWELLING Verified 02/11/18 14:17 Antibiotics) MRI PRECAUTION Allergy Severe ALLERGY TO Uncoded 06/11/17 20:23 MRI CONTRAST MEDIUM Exam Vital signs: Vital Signs 03/28/18 00:10 03/28/18 00:54 03/28/18 03:00 Temperature 98.3 F Pulse Rate 98 H 74 89 Respiratory Rate 24 18 15 Blood Pressure 208/126 H 187/114 H Pulse Oximetry 98 98 03/28/18 05:00 03/28/18 06:04 03/28/18 08:00 Temperature 98.2 F Pulse Rate 76 90 86 Respiratory Rate 14 18 18 Blood Pressure 151/104 H 140/95 H 159/97 H Pulse Oximetry 99 100 Intake & Output 03/27/18 03/28/18 03/28/18 18:59 06:59 18:59 Intake Total 1050 / 1050 Balance 1050 / 1050 Weight 72.575 kg Intake: IV 1050 / 1050 Cleocin 600 mg/NS Premix 600 mg 50 / 50 In 50 ml @ 100 mls/hr IV.SIG Q8H AFTAB Rx#:[id number] NS Inj 1,000 ML @ Wide Open IV. 1000 / 1000 SIG BOLUS ONE Rx#:[id number] Narrative: GENERAL: WN, WD AA female sitting up in bed in NAD. SKIN: Warm and dry. HEENT: AT/NC. Pupils equal and round. TMs not examined secondary to no otoscope available. MMM. Posterior pharynx is mildly erythematous. The left side is swollen but there is no airway compromise. There is no exudate. Voice is hoarse. NECK: Diffuse cervical and submandibular lymphadenopathy, L>R. HEART: RRR no m/r/g. LUNGS: CTAB without wheezes or crackles. ABDOMEN: +BS, soft, NT, ND. EXTREMITIES: No LE edema. NEURO: Awake and alert. PSYCH: Appropriate mood and affect. Results - Labs CBC & Chem 7: 03/28/18 03:30 03/28/18 04:40 Labs: Short CBC 03/28/18 Range/Units 03:30 WBC 6.3 (4.0-11.0) th/mm3 Hgb 15.5 H (11.6-15.3) gm/dL Hct 45.3 (35.0-46.0) % Plt Count 168 (150-450) th/mm3 BMP 03/28/18 04:40 Sodium 137 Potassium 3.5 Chloride 105 Carbon Dioxide 24.3 BUN 12 Creatinine 0.85 Calcium 8.5 Liver Function 03/28/18 Range/Units 04:40 Total Bilirubin 1.4 H (0.2-1.0) mg/dL AST 13 L (15-37) U/L ALT 15 (10-53) U/L Alkaline Phosphatase 81 (45-117) U/L Albumin 3.4 (3.4-5.0) g/dL - Imaging Impressions Soft Tissue Neck X-Ray 03/28/18 00:48 CONCLUSION: Widening of the retropharyngeal space. Abscess is not excluded. This can be further evaluated by contrast-enhanced CT. Soft Tissue Neck CT 03/28/18 03:29 CONCLUSION: 1. Retropharyngeal effusion without evidence of discrete abscess. Diffuse bilateral adenopathy. Caprini VTE Risk Assessment Caprini VTE Risk Assessment: No/Low Risk (score <= 1) Caprini Risk Assessment Model: Point Value = 1 Point Value = 2 Point Value = 3 Point Value = 5 Age 41-60 Minor surgery BMI > 25 kg/m2 Swollen legs Varicose veins or History of unexplained or recurrent spontaneous Oral contraceptives or hormone replacement Sepsis (< 1 month) Serious lung disease, including pneumonia (< 1 month) Abnormal pulmonary function Acute myocardial infarction Congestive heart failure (< 1 month) History of inflammatory bowel disease Medical patient at bed rest Age 61-74 Arthroscopic surgery Major open surgery (> 45 min) Laparoscopic surgery (> 45 min) Malignancy Confined to bed (> 72 hours) Immobilizing plaster cast Central venous access Age >= 75 History of VTE Family history of VTE Factor V Leiden Prothrombin [id number] Lupus anticoagulant Anticardiolipin antibodies Elevated serum homocysteine Heparin-induced thrombocytopenia Other congenital or acquired thrombophilia Stroke (< 1 month) Elective arthroplasty Hip, pelvis, or leg fracture Acute spinal cord injury (< 1 month) Prophylaxis Regimen: Total Risk Factor Score Risk Level Prophylaxis Regimen 0-1 Low Early ambulation 2 Moderate Order ONE of the following: *Sequential Compression Device (SCD) *Heparin 5000 units SQ BID 3-4 Higher Order ONE of the following medications: *Heparin 5000 units SQ TID *Enoxaparin/Lovenox 40 mg SQ daily (WT < 150 kg, CrCl > 30 mL/min) *Enoxaparin/Lovenox 30 mg SQ daily (WT < 150 kg, CrCl > 10-29 mL/min) *Enoxaparin/Lovenox 30 mg SQ BID (WT < 150 kg, CrCl > 30 mL/min) AND/OR *Sequential Compression Device (SCD) 5 or more Highest Order ONE of the following medications: *Heparin 5000 units SQ TID (Preferred with Epidurals) *Enoxaparin/Lovenox 40 mg SQ daily (WT < 150 kg, CrCl > 30 mL/min) *Enoxaparin/Lovenox 30 mg SQ daily (WT < 150 kg, CrCl > 10-29 mL/min) *Enoxaparin/Lovenox 30 mg SQ BID (WT < 150 kg, CrCl > 30 mL/min) AND *Sequential Compression Device (SCD) Assessment and Plan - Assessment (1) Throat pain Code(s): R07.0 - Pain in throat Status: Acute - Plan 52 year old female with history of HTN, SLE, remote history of throat cancer in her 30s, and history of meningioma presenting with sore throat and difficulty swallowing. 1. Retropharyngeal effusion Patient presenting with sore throat, dysphagia, and difficulty breathing No leukocytosis or fever XR of the neck showed widening of the retropharyngeal space, abscess not excluded CT of the neck showed a retropharyngeal effusion without evidence of discrete abscess as well as diffuse nonspecific adenopathy bilaterally. No abnormalities of the thyroid Rapid strep negative with culture pending Continue clindamycin Start Decadron Q8 given difficulty breathing and swallowing Will consult ENT for further evaluation Speech therapy for swallow eval Toradol PRN Chloraseptic spray PRN 2. HTN BP significantly elevated on admission up to 208/126 Patient has been off on home antihypertensives secondary to loss of insurance BPs have since stabilized since starting on amlodipine Will continue to monitor closely 3. Lupus Not in acute exacerbation Needs outpatient rheumatology follow-up but unfortunately has no insurance at this time GI prophylaxis: PPI while on steroids Code Status: FULL Discussed Condition With: Patient and family Discharge Planning: Anticipate in 1-2 days if patient clinically improved and ENT evaluates
--- NOTE | 2018-03-28 13:39 | ECG ---
Date Performed: 03/28/2018 Time Performed: 00:20:15 PTAGE: 52 years EKG: Sinus rhythm NORMAL ECG PREVIOUS TRACING : 06/12/2017 16.18 Since the previous tracing, no significant change noted DOCTOR: Aj Herbert Interpretating Date/Time 03/28/2018 13:37:58
[2018-03-28] MEDS: Phenol 1.4% 180 ML Spray Bottle OROPHARYNG PRN ×2 (15:31→20:54)
[2018-03-28] MEDS: Ketorolac Inj 30 MG/ML (IVP) Vial IV.PUSH PRN (20:54)
[2018-03-29 07:37] LABS: Baso % (Auto) 0.1 % (0.0-2.0); Hematocrit 42.6 % (35.0-46.0); Hemoglobin 14.4 gm/dL (11.6-15.3); Lymph # (Auto) 0.8 th/mm3 (1.0-4.8); Lymph % (Auto) 15.3 % (9.0-44.0); Mean Corpuscular HGB Conc 33.8 % (32.0-36.0); Mean Corpuscular Hemoglobin 28.4 pg (27.0-34.0); Mean Platelet Volume 8.5 fL (7.0-11.0); Mono # (Auto) 0.3 th/mm3 (0.0-0.9); Mono % (Auto) 5.2 % (0.0-8.0); Neut % (Auto) 79.4 % (16.0-70.0); Platelet Count 169 th/mm3 (150-450); Red Blood Count 5.07 mil/mm3 (4.00-5.30); Red Cell Distribution Width 15.5 % (11.6-17.2); White Blood Count 5.1 th/mm3 (4.0-11.0)
[2018-03-29] MEDS: amLODIPine 10 MG Tablet PO SCH (08:11)
[2018-03-29 08:17] LABS: Calcium 9.6 mg/dL (8.5-10.1); Carbon Dioxide 25.4 meq/L (21.0-32.0); Potassium 3.9 meq/L (3.5-5.1)
--- NOTE | 2018-03-29 08:55 | P.PNIM ---
Subjective Interval history: Patient complains of some mild neck pain, significantly improved from yesterday. No difficulty in swallowing. She does not have any other complaints. Physical Exam Vital signs: Vital Signs 03/28/18 11:54 03/28/18 12:00 03/28/18 16:00 Temperature 98.1 F 97.8 F Pulse Rate 67 69 75 Respiratory Rate 16 16 Blood Pressure 128/89 131/93 H Pulse Oximetry 100 100 03/28/18 20:00 03/29/18 00:00 03/29/18 04:00 Temperature 97.9 F 98.1 F 98.1 F Pulse Rate 87 81 66 Respiratory Rate 16 16 16 Blood Pressure 152/97 H 142/94 H 137/89 Pulse Oximetry 98 99 99 03/29/18 08:00 Temperature 97.5 F L Pulse Rate 75 Respiratory Rate 12 Blood Pressure 161/108 H Pulse Oximetry 92 L Intake & Output 03/28/18 03/29/18 03/29/18 18:59 06:59 18:59 Intake Total 50 / 50 770 / 770 Balance 50 / 50 770 / 770 Weight 72.575 kg Intake: IV 50 / 50 50 / 50 Cleocin 600 mg/NS Premix 600 mg 50 / 50 50 / 50 In 50 ml @ 100 mls/hr IV.SIG Q8H AFTAB Rx#:[id number] Oral 720 / 720 Other: # Voids 2 Weight On Admission 72.575 kg Narrative: General patient in no acute distress HEENT extraocular movements are intact, mild swelling of the left side of the patient's neck. Cardiovascular S1-S2 audible, RRR, no murmurs rubs or gallops Respiratory clear to auscultation bilaterally Abdomen soft, nontender, nondistended, normal bowel sounds Extremities no edema 2+ distal pulses in bilateral upper and lower extremities Neuro no neurological deficits. Results - Labs CBC & Chem 7: 03/29/18 06:05 03/29/18 06:05 Laboratory Results - last 24 hr 03/29/18 03/29/18 06:05 06:05 WBC 5.1 RBC 5.07 Hgb 14.4 Hct 42.6 MCV 84.0 MCH 28.4 MCHC 33.8 RDW 15.5 Plt Count 169 MPV 8.5 Neut % (Auto) 79.4 H Lymph % (Auto) 15.3 [place] % (Auto) 5.2 Eos % (Auto) 0.0 Baso % (Auto) 0.1 Neut # (Auto) 4.0 Lymph # (Auto) 0.8 L [place] # (Auto) 0.3 Eos # (Auto) 0.0 Baso # (Auto) 0.0 WBC Differential . Differential Comment Auto diff final Sodium 137 Potassium 3.9 Chloride 102 Carbon Dioxide 25.4 Anion Gap 10 BUN 16 Creatinine 0.92 Estimated GFR 78 L Random Glucose 131 H Calcium 9.6 D Assessment and Plan - Assessment (1) Throat pain Code(s): R07.0 - Pain in throat Status: Acute - Plan 52-year-old female with a diagnosis of hypertension, SLE. Patient presented with complaints of throat pain that been ongoing over the past 5 or 6 days and progressively getting worse. CT scan of the neck shows a retropharyngeal effusion. 1. Retropharyngeal effusion The patient still having some pain around the throat region worse on the left. No fevers, WBC count is normal. Patient was evaluated by ENT as per the patient, recommendations from ENT are to continue the patient on IV antibiotics and IV steroids for another 24-48 hours. I will reevaluate the patient tomorrow if her symptoms have improved she will be discharged tomorrow. Patient will likely be ready for discharge tomorrow with p.o. antibiotics. 2. Uncontrolled hypertension As per the patient she has not been taking medications for a couple of weeks due to insurance reasons. She will be continued on Norvasc. I will monitor the patient's blood pressure and adjust her blood pressure medications as needed. 3. SLE Continue home medications. Patient is ambulatory, no pharmacotherapy for DVT prophylaxis.
--- NOTE | 2018-03-29 12:37 | MD ---
cc: Miguel Mccoy MD DATE OF DISCHARGE: HISTORY OF PRESENT ILLNESS: The patient was in room G-82 in the emergency department at the time of consultation. A 52-year-old female who had difficulty swallowing and breathing; was in the hospital for approximately 18 hours, placed on IV antibiotics and steroids with moderate improvement in symptoms. CT scan reveals some edema of the retropharyngeal space between levels C3 and C6. PHYSICAL EXAMINATION: GENERAL: A well-appearing female in no acute distress, tolerating her own secretions. Good airway good voice. HEENT: Ears are WNL. Nasal cavity WNL. Oral cavity WNL. NECK: Soft, supple. No masses noted. Trachea midline. Slight tenderness to palpation. Flexible exam reveals good vocal cord mobility on the right with slight decreased mobility on the left. No pooled secretions. No masses. Slight fullness of the retropharynx. IMPRESSION: Retroperitoneal process, minor. PLAN: Continue IV antibiotics and IV steroids for 24-48 more hours. Repeat exam at that time; likely ready for discharge at that time and followup in the office. MD JAMAL Burciaga/lance , 07:41 AM , 07:49 AM
[2018-03-29] MEDS: Phenol 1.4% 180 ML Spray Bottle OROPHARYNG PRN (23:07)
[2018-03-30] MEDS: Ketorolac Inj 30 MG/ML (IVP) Vial IV.PUSH PRN (08:41)
[2018-03-30] MEDS: amLODIPine 10 MG Tablet PO SCH (08:42)
[2018-03-30] MEDS: Phenol 1.4% 180 ML Spray Bottle OROPHARYNG PRN (08:43)
[2018-03-30] MEDS ORDERED: predniSONE 10 MG Tablet PO SCH (09:00)
[2018-03-30 09:15] VITALS: BP 124/91; PULSE 58; RESP 18; TEMP 97.9; O2SAT 100
--- NOTE | 2018-03-30 14:11 | P.DS ---
Date of admission: 03/28/18 05:39 Primary care physician: No Primary Care Physician Attending physician on discharge: Dr. Coleman Brief History from admission: 52 year old female with history of HTN, SLE, remote history of throat cancer in her 30s, and history of meningioma presenting with sore throat and difficulty swallowing. The patient reports she started having a sore throat about four days ago and yesterday it got to the point where she couldn't even swallow. She took Theraflu and Mucinex with no relief. She denies sick contacts. She reports it got to the point that she started having difficulty breathing as well. She feels in general her symptoms feel a little better since being in the hospital but she is still having some dysphagia. She had an umbilical hernia repair back in May 2017 and states that her throat was very scarred from intubated to the point where her voice was hoarse up to two months. Of note, the patient reports she is no longer on medications for her HTN or SLE after losing insurance several months ago. She was following with Dr. Cardenas prior to losing insurance. DS: Diagnosis - Discharge Diagnosis (1) Throat pain Status: Acute DS: Medications - Discharge Medications Prescriptions: amlodipine [Norvasc] 10 mg PO DAILY #30 tab clindamycin HCl [Cleocin HCl] 450 mg PO Q6HR #28 cap prednisone 10 mg PO DAILY #10 tab DS: Summary Hospital Course: 52-year-old female with a diagnosis of hypertension, SLE. Patient presented with complaints of throat pain that been ongoing over the past 5 or 6 days and progressively getting worse. CT scan of the neck shows a retropharyngeal effusion. 1. Retropharyngeal effusion The patient was admitted and started on IV fluids, IV steroids, and antibiotics. CT scan of the neck was done which showed retropharyngeal effusion however no abscess. ENT was consulted to evaluate the patient, no surgical intervention was recommended. Recommendations from ENT were to continue the patient on IV steroids, and antibiotics. Rapid strep test was negative. After couple days at our hospital the patient's symptoms improved significantly. She will be discharged on p.o. prednisone as a tapering dose and p.o. clindamycin. These instructions were given to the patient and she understood the instructions of the p.o. clindamycin as well as the p.o. prednisone tapering regimen. She was advised to seek immediate medical attention if her symptoms of neck swelling or pain worsen. The patient will be discharged home today. 2. Uncontrolled hypertension Patient can continue Norvasc on discharge. She should follow-up with primary care physician in the next 1-2 weeks. Her blood pressure medications can be adjusted as needed. 3. SLE Patient should follow-up with a primary care physician in the next 1-2 weeks. She was given instructions on how to obtain a PCP. She should be referred to a gas compressor turbine operator for her SLE. Patient is ambulatory, no pharmacotherapy for DVT prophylaxis. - Time Spent with Patient Total time spent providing and/or coordinating discharge services: Greater than 30 minutes - Quality: VTE Deep Vein Thrombosis/Pulmonary Embolism Present on Admission: No Exam Vital signs: Vital Signs 03/29/18 15:53 03/29/18 20:00 03/30/18 00:00 Temperature 97.6 F 98.5 F 98.7 F Pulse Rate 80 59 L 73 Respiratory Rate 12 17 19 Blood Pressure 130/92 H 147/89 H 145/88 H Pulse Oximetry 98 100 99 03/30/18 04:00 03/30/18 08:40 03/30/18 09:12 Temperature 97.5 F L 97.9 F Pulse Rate 60 52 L 58 L Respiratory Rate 20 18 Blood Pressure 117/80 124/91 H Pulse Oximetry 99 100 Intake & Output 03/29/18 03/30/18 03/30/18 18:59 06:59 18:59 Other: # Voids 9 1 Date of Last Bowel Movement 03/29/18 # Bowel Movements 1 Narrative: General patient in no acute distress HEENT extraocular movements are intact, mild swelling of the left side of the patient's neck however improved significantly since yesterday. Cardiovascular S1-S2 audible, RRR, no murmurs rubs or gallops Respiratory clear to auscultation bilaterally Abdomen soft, nontender, nondistended, normal bowel sounds Extremities no edema 2+ distal pulses in bilateral upper and lower extremities Neuro no neurological deficits. Results Procedures completed during hospitalization: none - Impressions ITS Impressions Soft Tissue Neck X-Ray 03/28/18 00:48 CONCLUSION: Widening of the retropharyngeal space. Abscess is not excluded. This can be further evaluated by contrast-enhanced CT. Soft Tissue Neck CT 03/28/18 03:29 CONCLUSION: 1. Retropharyngeal effusion without evidence of discrete abscess. Diffuse bilateral adenopathy. Discharge Plan - Discharge Disposition Patient Disposition: 01 Discharge Home - Discharge Condition Condition: Good - Discharge Order Discharge Orders: Discharge Order (Routine); Ordered 03/30/18 Ordered By: Marcella Coleman - Physicians Team Primary Care Provider: Primary Care Darcy Meneses Attending Provider: Marcella Coleman Other Providers: Dimitrios Taylor MD
== END 2018-03-30 10:54 | disposition home or self-care (01) ==
LOC: NEDA 00:02 → NEPE 00:02 → NEDA 06:50 → NEPGCP 07:43
PROVIDERS: ADMIT Hospitalist; ATTEND Hospitalist